=== PATIENT | female | born 1945 | race Caucasian/White ===

== ENCOUNTER → 2016-12-29 | Outpatient (CLI) | payer BC ==
[~2016-12-29] MED LIST: FRS/40 PO; INSDGI SQ; INSU100I SQ; LISI10TA PO; SIMV40TA2 PO
[2016-12-29 09:30] LABS: HEMATOCRIT 42.6 % (37-47); MEAN CELL VOLUME 89.1 fL (80-100); MEAN CORPUSCULAR HEMOGLOBIN 29.5 pg (25-34); MEAN CORPUSCULAR HGB CONC 33.1 g/dl (32-36); MEAN PLATELET VOLUME 10.6 fL (7.4-10.4); PLATELET COUNT 216 K/uL (130-400); RED BLOOD COUNT 4.78 M/uL (4.2-5.4)
[2016-12-29 10:43] LABS: BLOOD UREA NITROGEN 31 mg/dl (7-18); BUN/CREATININE RATIO 23.7 (10-20); CALCIUM 9.7 mg/dl (8.5-10.1); CARBON DIOXIDE 26 mmol/L (21-32); CHLORIDE 107 mmol/L (98-107); GLUCOSE 121 mg/dl (70-99); POTASSIUM 4.1 mmol/L (3.5-5.1); SODIUM 141 mmol/L (136-145)
[2016-12-29 10:44] LABS: PHOSPHORUS 2.7 mg/dl (2.5-4.9)
[2016-12-30 12:05] LABS: URINE APPEARANCE CLEAR (CLEAR); URINE BILIRUBIN NEG (NEG); URINE COLOR YELLOW; URINE NITRITE NEG (NEG); URINE SPECIFIC GRAVITY 1.018 (1.000-1.030); UROBILINOGEN NEG (NEG); ZZUR CULT IF INDIC CLEAN CATCH NO
[2016-12-30 12:08] LABS: MANUAL MICROSCOPIC REQUIRED? NO; REVIEW REQ? NO
== END | disposition home or self-care (01) ==
LOC: C.LAB 08:00
PROVIDERS: ATTEND Internal Medicine Nephrology
DX: I10 Essential (primary) hypertension (principal); N18.3 Chronic kidney disease, stage 3 (moderate); N25.81 Secondary hyperparathyroidism of renal origin; R80.9 Proteinuria, unspecified

== ENCOUNTER → 2017-03-17 | Outpatient (CLI) | payer BC ==
[2017-03-17 15:46] LABS: THYROID STIMULATING HORMONE 1.07 uIu/ml (0.300-4.500)
[2017-03-18 06:32] LABS: ESTIMATED AVERAGE GLUCOSE 146 mg/dl; HA1C FLAG Normal (Normal)
== END | disposition home or self-care (01) ==
LOC: C.LAB 13:05
PROVIDERS: ATTEND Internal Medicine
DX: E11.22 Type 2 diabetes mellitus with diabetic chronic kidney disease (principal); E78.00 Pure hypercholesterolemia, unspecified

== ENCOUNTER → 2017-11-25 | Outpatient (CLI) | payer BC ==
[2017-11-25 12:07] LABS: MEAN CELL VOLUME 88.1 fL (80-100); MEAN CORPUSCULAR HEMOGLOBIN 29.4 pg (25-34); MEAN CORPUSCULAR HGB CONC 33.3 g/dl (32-36); MEAN PLATELET VOLUME 10.3 fL (7.4-10.4); PLATELET COUNT 213 K/uL (130-400); RED CELL DISTRIBUTION WIDTH SD 45.4 fL (36.4-46.3)
[2017-11-25 12:42] LABS: ALBUMIN 3.5 gm/dl (3.4-5.0); ALT/SGPT 21 U/L (12-78); BLOOD UREA NITROGEN 34 mg/dl (7-18); CARBON DIOXIDE 25 mmol/L (21-32); CHOLESTEROL 110 mg/dl (0-200); GLUCOSE 122 mg/dl (70-99); POTASSIUM 4.1 mmol/L (3.5-5.1); SODIUM 139 mmol/L (136-145)
[2017-11-25 12:47] LABS: ALKALINE PHOSPHATASE 114 U/L (45-117); AST/SGOT 15 U/L (15-37); LDL CHOLESTEROL CALCULATED 28 mg/dl; TOTAL PROTEIN 7.3 gm/dl (6.4-8.2)
[2017-11-25 12:54] LABS: HEMOGLOBIN A1C 6.9 % (4.5-5.6)
== END | disposition home or self-care (01) ==
LOC: C.LAB 11:22
PROVIDERS: ATTEND Internal Medicine Nephrology
DX: E11.21 Type 2 diabetes mellitus with diabetic nephropathy (principal); I12.9 Hypertensive chronic kidney disease with stage 1 through stage 4 chronic kidney disease, or unspecified chronic kidney disease; N18.3 Chronic kidney disease, stage 3 (moderate); E55.9 Vitamin D deficiency, unspecified; N25.81 Secondary hyperparathyroidism of renal origin; R80.9 Proteinuria, unspecified

== ENCOUNTER → 2018-06-11 | Outpatient (CLI) | payer BC ==
[2018-06-11 12:34] LABS: ALT/SGPT 18 U/L (12-78); AST/SGOT 15 U/L (15-37); BLOOD UREA NITROGEN 38 mg/dl (7-18); CALCIUM 9.3 mg/dl (8.5-10.1); CARBON DIOXIDE 23 mmol/L (21-32); CHOLESTEROL 95 mg/dl (0-200); CREATININE 1.61 mg/dl (0.60-1.20); GLUCOSE 108 mg/dl (70-99); LDL CHOLESTEROL CALCULATED 19 mg/dl; POTASSIUM 4.4 mmol/L (3.5-5.1); SODIUM 136 mmol/L (136-145)
[2018-06-11 13:30] LABS: HEMOGLOBIN A1C 6.3 % (4.5-5.6)
== END | disposition home or self-care (01) ==
LOC: C.LAB 11:14
PROVIDERS: ATTEND Internal Medicine
DX: E78.00 Pure hypercholesterolemia, unspecified (principal); E11.9 Type 2 diabetes mellitus without complications

== ENCOUNTER 2024-10-10 18:28 | Observation (INO) ==
[2024-10-10] MEDS: ONDANSETRON INJ 2 MG/ML 2 ML VIAL IV STA ×2 (19:08→21:31)
[2024-10-10 19:14] LABS: Basophils # (auto) 0.08 K/uL (0.00-0.20); Basophils % (auto) 1.1 %; Eosinophils % (auto) 1.4 %; Hematocrit (blood only) 48.6 % (37.0-47.0); Hemoglobin 15.3 g/dl (12.0-16.0); Immature Granulocytes # (auto) 0.04 K/uL (0.01-0.20); Immature Granulocytes % (auto) 0.5 %; Lymphocytes # (auto) 1.42 K/uL (1.20-3.40); Lymphocytes % (auto) 19.2 %; Mean Corpuscular Hemoglobin 27.2 pg (25.0-34.0); Mean Corpuscular Hgb Conc 31.5 g/dL (32.0-36.0); Mean Corpuscular Volume 86.5 fL (80.0-100.0); Mean Platelet Volume 10.7 fL (9.4-12.4); Monocytes # (auto) 0.43 K/uL (0.11-0.59); Monocytes % (auto) 5.8 %; Neutrophils # (auto) 5.33 K/uL (1.40-6.50); Platelet Count 250 K/uL (130-400); RDW Coefficient of Variation 16.5 % (11.5-14.5); RDW Standard Deviation 51.6 fL (36.4-46.3); Red Blood Count 5.62 M/uL (4.20-5.40)
[2024-10-10] MEDS: ONDANSETRON INJ 2 MG/ML 2 ML VIAL ONE (19:15)
[2024-10-10 19:43] LABS: Albumin Globulin Ratio 1.3 (0.9-2); Albumin Level 3.7 gm/dl (3.4-5.0); BUN Creatinine Ratio 19.5 (10-20); Bilirubin,Total 0.9 mg/dl (0.2-1.0); Calcium 9.6 mg/dl (8.6-10.3); Creatinine Clr Calc Pharmacy 31.3 ml/min; Globulin 2.9 gm/dl (2.5-4.0); Total Protein 6.6 gm/dl (6.0-8.3)
[2024-10-10 19:58] LABS: Troponin I High Sensitivity 5.3 pg/ml (0-14)
--- NOTE | 2024-10-10 19:58 | Emergency Department Note ---
Impression & Plan Syncope, Atrial fibrillation ED Provider Note Diagnosis: Syncope, atrial fibrillation Disposition: Admission CHIEF COMPLAINT: Fall HPI: Patient 78-year-old female from nursing facility presenting after episodes of vomiting and fall. Patient believes she may have passed out during the episode. Patient denies any active chest pain or shortness of breath. Patient upon arrival was in A-fib with RVR which broke on its own by time I came to the room to evaluate the patient. Patient states she is having intermittent abdominal pain. Patient states she has chronic diarrhea without blood present in it. PAST MEDICAL HISTORY: See Below PAST SURGICAL HISTORY: See Below SOCIAL HISTORY: See Below HOME MEDICATIONS: See Below ALLERGIES: See Below VITALS: See Below PHYSICAL EXAMINATION: GENERAL: Well appearing, well nourished, NAD, non-toxic. EYE EXAM: Normal conjunctiva. OROPHARYNX: Moist mucus membranes. Grossly normal dentition. NECK: Supple, nontender LUNGS: Clear to auscultation. Normal chest wall mechanics. HEART: NSR ABDOMEN: Abdomen soft, mild tenderness BACK: No CVA TTP. SKIN: No rashes and no bruising. UPPER EXTREMITIES: Upper extremities are grossly normal LOWER EXTREMITIES: Grossly normal, no edema. NEURO EXAM: A&O x3,, normal speech, moves all 4 extremities PSYCH: Cooperative MEDICAL DECISION MAKING: Reviewed external documents: History obtained from: Patient ER Course: Patient 78-year-old female with history of cancer on hormonal treatment presenting after syncopal episode. Patient states she was at dinner tonight stood up to leave and passed out. Patient denies any chest pain or shortness of breath before the episode. Patient upon arrival in the emergency room found to be in A-fib with RVR. By time was able to get to the patient's room to evaluate her she had broke to a normal sinus rhythm. Upon review of patient's prior records she has no history of A-fib previously. Patient had CT scan of head performed which shows no intracranial hemorrhage. CT scan abdomen pelvis shows continued cancer present. Patient admitted to hospital service further treatment and evaluation. Labs (independently interpreted) are significant for: Troponin negative Imaging results (independently interpreted): Chest x-ray clear EKG interpretation (independently interpreted): First EKG atrial fibrillation with RVR no ST segment elevation or depression, second EKG normal sinus rhythm no ST segment elevation or depression Consultants: Hospitalist Chronic conditions affecting care: Uterine cancer Triage Nursing notes reviewed and agree them. 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) Hand numbness Lesion of thoracic vertebra Diarrhea Primary hyperparathyroidism Fracture of left distal radius (~12/31/23) Saw orthopedics on 12/31/23-fell while visiting [facility] Hand injury Wrist injury Current use of proton pump inhibitor Encounter to discuss test results Zenkers diverticulum Swallowing difficulty Skin lesion of right arm Proteinuria (Chronic) Chronic kidney disease, stage 3 (Chronic) Vitamin D deficiency (Chronic) Secondary hyperparathyroidism (Acute) Proliferative diabetic retinopathy (Acute) Osteoporosis (Acute) Lumbago (Acute) Hypertension (Chronic) Hypercholesterolemia (Acute) Diabetic nephropathy (Acute) Diabetes with neurologic complications (Acute) Medical History History of stroke Acid reflux Hypercalcemia Glaucoma Ruptured intervertebral disc Surgical History S/P tonsillectomy S/P lumbar laminectomy S/P cholecystectomy S/P cataract surgery Status post appendectomy Family History Brother Carcinoma of retina Type 2 diabetes mellitus Gastric cancer Dialysis patient Mother Macular degeneration Stroke Congestive heart failure Sister Bladder cancer Father No problems noted. Sister Thyroid cancer Son No problems noted. Daughter No problems noted. 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: No Beliefs That Will Affect Care: None marital status: / Current Living Situation: Alone Current Living Situation Comment: Resides in personal care at [facility] current occupational status: retired How many Children do You have: 2 How many Children do You have Comment: 1 boy 1 girl Feels Safe at Home: Yes Childhood Exposure to Second-Hand Smoke: No Diet: regular caffeine: Yes (1 cup/day) during the past year weight has: remained stable Dental Care, Regularly: Yes Physical Activity Frequency: Does not Exercise Seatbelt Use: always Assistive Devices: Walker Allergies Allergies Allergy/AdvReac Type Severity Reaction Status Date / Time codeine AdvReac Mild NAUSEA Verified 08/03/24 10:36 Home Meds Home Medications Medication Instructions Recorded Confirmed aspirin 325 mg tablet 325 mg PO DAILY 05/17/19 09/14/24 netarsudil 0.02 % eye drops 1 drp OPR HS 02/29/24 09/14/24 (Rhopressa) acetaminophen 500 mg tablet 500 mg PO Q6H PRN Pain 05/29/24 09/14/24 cholecalciferol (vitamin D3) 50 50 mcg PO DAILY 05/29/24 09/14/24 mcg (2,000 unit) tablet (Vitamin D3) dextrose 40 % oral gel (Glucose 1 ea PO UD PRN Hypoglycemia 05/29/24 09/14/24 Gel) dorzolamide 22.3 mg-timolol 6.8 1 drp OPB BID 05/29/24 09/14/24 mg/mL eye drops ferrous sulfate 325 mg (65 mg 325 mg PO DAILY 08/03/24 09/14/24 iron) tablet omeprazole 20 mg capsule,delayed 20 mg PO DAILY 08/03/24 09/14/24 release insulin aspart U-100 100 unit/mL 1 - 5 unit subcut TID 08/11/24 09/14/24 subcutaneous cartridge (Novolog PenFill U-100 Insulin aspart) insulin glargine 100 unit/mL 8 unit subcut QPM 08/11/24 09/14/24 subcutaneous solution (Lantus U-100 Insulin) Previous Rx's Medication Instructions Recorded blood sugar diagnostic (OneTouch #100 ea 05/18/23 Verio test strips) blood-glucose meter,continuous #1 ea 01/22/24 (FreeStyle Rhonda 3 [place]) loperamide 2 mg capsule 2 mg PO Q6H PRN Loose Stool #30 07/12/24 caps blood-glucose sensor (FreeStyle #1 ea 08/26/24 Rhonda 3 Plus Sensor device) lisinopril 20 mg tablet 20 mg PO DAILY #30 tabs 09/12/24 pen needle, diabetic 32 gauge x #100 ea 09/16/24 1/4" (BD Ultra-Fine Micro Pen Needle) finerenone 10 mg tablet 10 mg PO DAILY #30 tabs 09/28/24 Results & Data (ED) Vital Signs Vital Signs - 24 hr 10/10/24 18:40 10/10/24 18:48 10/10/24 18:55 Temperature 36.8 C Temperature Source Oral Pulse Rate 73 68 71 Pulse Rate [Apical] Pulse Rate from SpO2 Sensor 67 Pulse Rhythm Regular Pulse Rhythm [Apical] Pulse Strength Normal Pulse Strength [Apical] Respiratory Rate 25 H 18 Respiratory Effort / Characteristics Non-Labored Spontaneous Respiratory Depth Normal Respiratory Pattern Regular Blood Pressure 178/106 H Blood Pressure [Right Arm] Blood Pressure Mean 130 Blood Pressure Mean [Right Arm] Pulse Oximetry 89 L 99 Oxygen Delivery Method Room Air Oxygen Flow Rate Sepsis Recent Fever Within 48 Hours No Sepsis New/Unexplained Change in Mental Status No Sepsis Action Taken by Nursing No Action Required 10/10/24 19:00 10/10/24 19:08 10/10/24 19:10 Temperature Temperature Source Pulse Rate 160 H Pulse Rate [Apical] Pulse Rate from SpO2 Sensor Pulse Rhythm Pulse Rhythm [Apical] Pulse Strength Pulse Strength [Apical] Respiratory Rate Respiratory Effort / Characteristics Respiratory Depth Respiratory Pattern Blood Pressure Blood Pressure [Right Arm] Blood Pressure Mean Blood Pressure Mean [Right Arm] Pulse Oximetry 88 L 94 Oxygen Delivery Method Room Air Nasal Cannula Oxygen Flow Rate 2 Sepsis Recent Fever Within 48 Hours Sepsis New/Unexplained Change in Mental Status Sepsis Action Taken by Nursing 10/10/24 19:11 10/10/24 19:42 10/10/24 19:43 Temperature Temperature Source Pulse Rate 65 73 Pulse Rate [Apical] 72 Pulse Rate from SpO2 Sensor 72 Pulse Rhythm Pulse Rhythm [Apical] Regular Pulse Strength Pulse Strength [Apical] Normal Respiratory Rate 21 20 Respiratory Effort / Characteristics Non-Labored Spontaneous Respiratory Depth Normal Respiratory Pattern Regular Blood Pressure Blood Pressure [Right Arm] 118/79 Blood Pressure Mean Blood Pressure Mean [Right Arm] 92 Pulse Oximetry 98 94 Oxygen Delivery Method Nasal Cannula Oxygen Flow Rate 2 Sepsis Recent Fever Within 48 Hours Sepsis New/Unexplained Change in Mental Status Sepsis Action Taken by Nursing 10/10/24 19:43 10/10/24 19:46 10/10/24 20:00 Temperature Temperature Source Pulse Rate 72 Pulse Rate [Apical] Pulse Rate from SpO2 Sensor Pulse Rhythm Regular Pulse Rhythm [Apical] Pulse Strength Pulse Strength [Apical] Respiratory Rate Respiratory Effort / Characteristics Respiratory Depth Respiratory Pattern Blood Pressure 118/79 156/88 H Blood Pressure [Right Arm] Blood Pressure Mean 99 136 Blood Pressure Mean [Right Arm] Pulse Oximetry 94 Oxygen Delivery Method Oxygen Flow Rate Sepsis Recent Fever Within 48 Hours Sepsis New/Unexplained Change in Mental Status Sepsis Action Taken by Nursing 10/10/24 20:00 10/10/24 20:00 10/10/24 20:27 Temperature Temperature Source Pulse Rate 71 71 Pulse Rate [Apical] Pulse Rate from SpO2 Sensor 71 71 Pulse Rhythm Pulse Rhythm [Apical] Pulse Strength Pulse Strength [Apical] Respiratory Rate 20 16 Respiratory Effort / Characteristics Respiratory Depth Respiratory Pattern Blood Pressure 156/88 H Blood Pressure [Right Arm] Blood Pressure Mean 136 Blood Pressure Mean [Right Arm] Pulse Oximetry 99 95 Oxygen Delivery Method Oxygen Flow Rate Sepsis Recent Fever Within 48 Hours Sepsis New/Unexplained Change in Mental Status Sepsis Action Taken by Nursing 10/10/24 20:30 10/10/24 21:00 10/10/24 22:00 Temperature Temperature Source Pulse Rate 76 Pulse Rate [Apical] Pulse Rate from SpO2 Sensor 76 Pulse Rhythm Pulse Rhythm [Apical] Pulse Strength Pulse Strength [Apical] Respiratory Rate 22 Respiratory Effort / Characteristics Respiratory Depth Respiratory Pattern Blood Pressure 120/72 118/72 122/69 Blood Pressure [Right Arm] Blood Pressure Mean 88 87 104 Blood Pressure Mean [Right Arm] Pulse Oximetry 97 Oxygen Delivery Method Oxygen Flow Rate Sepsis Recent Fever Within 48 Hours Sepsis New/Unexplained Change in Mental Status Sepsis Action Taken by Nursing 10/10/24 22:06 10/10/24 23:05 Temperature Temperature Source Pulse Rate 68 68 Pulse Rate [Apical] Pulse Rate from SpO2 Sensor 66 Pulse Rhythm Pulse Rhythm [Apical] Pulse Strength Pulse Strength [Apical] Respiratory Rate 18 Respiratory Effort / Characteristics Respiratory Depth Respiratory Pattern Blood Pressure Blood Pressure [Right Arm] Blood Pressure Mean Blood Pressure Mean [Right Arm] Pulse Oximetry 93 Oxygen Delivery Method Oxygen Flow Rate Sepsis Recent Fever Within 48 Hours Sepsis New/Unexplained Change in Mental Status Sepsis Action Taken by Nursing Laboratory Data 10/10/24 18:45 10/10/24 18:45 Lab Results 10/10/24 Range/Units 18:45 WBC 7.40 (4.8-10.8) K/ul RBC 5.62 H (4.20-5.40) M/uL Hgb 15.3 (12.0-16.0) g/dl Hct 48.6 H (37.0-47.0) % MCV 86.5 (80.0-100.0) fL MCH 27.2 (25.0-34.0) pg MCHC 31.5 L (32.0-36.0) g/dL RDW Std Deviation 51.6 H (36.4-46.3) fL RDW Coeff of Makenna 16.5 H (11.5-14.5) % Plt Count 250 (130-400) K/uL MPV 10.7 (9.4-12.4) fL Immature Gran % (Auto) 0.5 % Neut % (Auto) 72.0 % Lymph % (Auto) 19.2 % [place] % (Auto) 5.8 % Eos % (Auto) 1.4 % Baso % (Auto) 1.1 % Neut # (Auto) 5.33 (1.40-6.50) K/uL Lymph # (Auto) 1.42 (1.20-3.40) K/uL [place] # (Auto) 0.43 (0.11-0.59) K/uL Eos # (Auto) 0.10 (0.00-0.50) K/uL Baso # (Auto) 0.08 (0.00-0.20) K/uL Immature Gran # (Auto) 0.04 (0.01-0.20) K/uL Sodium 136 (136-145) mmol/L Potassium 4.0 (3.5-5.1) mmol/L Chloride 107 (98-107) mmol/L Carbon Dioxide 22 (21-32) mmol/L Anion Gap 7 (3-11) BUN 30 H (6-23) mg/dl Creatinine 1.54 H (0.6-1.2) mg/dl Est Cr Clr Drug Dosing 31.3 ml/min eGFR 34.56 BUN/Creatinine Ratio 19.5 (10-20) Glucose 181 H (70-99(Fasting)) mg/dl Calcium 9.6 (8.6-10.3) mg/dl Magnesium 2.3 (1.7-2.4) mg/dl Total Bilirubin 0.9 (0.2-1.0) mg/dl AST 18 (13-39) U/L ALT 12 (7-52) U/L Alkaline Phosphatase 143 H (34-104) U/L Troponin I High Sens 5.3 (0-14) pg/ml Total Protein 6.6 (6.0-8.3) gm/dl Albumin 3.7 (3.4-5.0) gm/dl Globulin 2.9 (2.5-4.0) gm/dl Albumin/Globulin Ratio 1.3 (0.9-2) Lipase 9 L (11-82) U/L Administered Medications Discontinued Medications Ioversol (Optiray 320 100ml) 94 ml IV ONCE ONE Stop: 10/10/24 21:41 Last Admin: 10/10/24 21:41 Dose: 94 ml Documented By: DALILA Ondansetron HCl (Ondansetron Inj 2 Mg/Ml 2 Ml Vial) 4 mg IV NOW STA Stop: 10/10/24 19:01 Last Admin: 10/10/24 19:08 Dose: 4 mg Documented By: EDI Ondansetron HCl (Ondansetron Inj 2 Mg/Ml 2 Ml Vial) Confirm Administered Dose 4 mg .ROUTE .STK-MED ONE Stop: 10/10/24 19:02 Last Admin: 10/10/24 19:15 Dose: Not Given Documented By: EDI Ondansetron HCl (Ondansetron Inj 2 Mg/Ml 2 Ml Vial) 4 mg IV NOW STA Stop: 10/10/24 19:31 Last Admin: 10/10/24 21:31 Dose: Not Given Documented By: EDI Imaging Data Radiologist's Impression: Abdomen/Pelvis CT 10/10/24 19:30 Exam(s): CT ABDOMEN + PELVIS With Contrast IV Amt: 94 ml opti 320 EXAM: CT Abdomen and Pelvis With Intravenous Contrast CLINICAL HISTORY: Reason for exam: +n/v/d abd pain. TECHNIQUE: Axial computed tomography images of the abdomen and pelvis with intravenous contrast. CTDI is 23.34 mGy and DLP is 1197.31 mGy-cm. Automated exposure control was utilized for the study. A dose lowering technique was utilized adhering to the principles of ALARA. CONTRAST: Patient received 94 ml opti 320 of IV contrast COMPARISON: No relevant prior studies available. FINDINGS: ABDOMEN: Liver: Multiple metastatic lesions in the liver. Largest lesion in the liver left hepatic lobe measuring 2.8 x 2.5 cm, unchanged. Gallbladder and bile ducts: Cholecystectomy. Biliary dilatation has progressed from the prior. Pancreas: Unremarkable. Spleen: Unremarkable. Adrenals: Unremarkable. Kidneys and ureters: Unremarkable. No obstructing stones. No hydronephrosis. Stomach and bowel: Colonic diverticulosis. PELVIS: Appendix: No findings to suggest acute appendicitis. Bladder: Unremarkable. Reproductive: Unremarkable as visualized. ABDOMEN and PELVIS: Intraperitoneal space: Unremarkable. No free air. No significant fluid collection. Bones/joints: No acute fracture. Soft tissues: Unremarkable. Vasculature: Stenotic/occluded SMV with developing mesenteric varices. Lymph nodes: Numerous metastatic implants within the mesentery and retroperitoneal adenopathy. Largest metastatic implant measures 4.3 x 4. 4 cm at the level of the right renal vein unchanged. Other findings: Partially calcified mesenteric mass measuring 4.8 x 2. 8 cm is unchanged. IMPRESSION: 1. Multiple metastatic lesions in the liver. 2. Partially calcified mesenteric mass measuring 4.8 x 2.8 cm is unchanged. 3. Numerous metastatic implants within the mesentery and retroperitoneal adenopathy. Largest metastatic implant measures 4.3 x 4.4 cm at the level of the right renal vein unchanged. 4. Cholecystectomy. Biliary dilatation has progressed from the prior. 5. Stenotic/occluded SMV with developing mesenteric varices. Electronically signed by: Ze Oneill MD 10/10/24 22:54 PM Chest X-Ray 10/10/24 19:30 Exam(s): XR CXR 1 VIEW EXAM: XR Chest, 1 View CLINICAL HISTORY: Reason for exam: Chest pain, nonspecific. TECHNIQUE: Frontal view of the chest. COMPARISON: 05/29/2024 FINDINGS: Lungs: No consolidation. No overt edema. Pleural space: No pleural effusion. No pneumothorax. Heart: Unremarkable. No cardiomegaly. IMPRESSION: No acute cardiopulmonary abnormality. Electronically signed by: Ze Oneill MD 10/10/24 21:[address] 10/10/24 19:30 Exam(s): CT HEAD Without Contrast EXAM: CT Head Without Intravenous Contrast CLINICAL HISTORY: Reason for exam: fall. TECHNIQUE: Axial computed tomography images of the head/brain without intravenous contrast. CTDI is 35.65 mGy and DLP is 624.41 mGy-cm. Automated exposure control was utilized for the study. A dose lowering technique was utilized adhering to the principles of ALARA. COMPARISON: MRI 07/28/2024. FINDINGS: Brain: No intracranial hemorrhage, mass-effect, or cerebral edema. Global parenchymal atrophy. Periventricular and subcortical low attenuation which is nonspecific but favored to represent chronic microvascular ischemic changes. Ventricles: Unremarkable. Bones/joints: Unremarkable. No fracture. Soft tissues: Unremarkable. Sinuses: No acute sinusitis. Mastoid air cells: Unremarkable as visualized. IMPRESSION: 1. No acute intracranial abnormality. Electronically signed by: Ze Oneill MD 10/10/24 22:45 PM Discharge Plan Visit Data Chief Complaint: Vomiting ED Provider: Kamari Vargas Discharge Problem: Syncope, Atrial fibrillation Forms Stand Alone Forms: [employer] Prescriptions Prescriptions: No Action insulin glargine [Lantus U-100 Insulin] 100 unit/mL solution 8 unit subcut QPM (DME) OneTouch Verio test strips Strip See Rx Instructions .Route Qty: 100 6RF Rx Instructions: use to test sugar TID DX:E11.49 loperamide 2 mg capsule 2 mg PO Q6H MDD 16mg/24hr PRN (Reason: Loose Stool) Qty: 30 4RF (DME) FreeStyle Rhonda 3 Plus Sensor Device See Rx Instructions .Route Qty: 1 11RF Rx Instructions: change Q15D lisinopril 20 mg tablet 20 mg PO DAILY Qty: 30 4RF (DME) pen needle, diabetic [BD Ultra-Fine Micro Pen Needle] 32 gauge x 1/4" needle See Rx Instructions .Route Qty: 100 3RF Rx Instructions: use with novalog and lantus E11.9 finerenone 10 mg tablet 10 mg PO DAILY Qty: 30 1RF aspirin 325 mg tablet 325 mg PO DAILY (DME) FreeStyle Rhonda 3 [place] Misc See Rx Instructions .Route Qty: 1 0RF Rx Instructions: for use with rhonda 3 sensor insulin aspart U-100 [Novolog PenFill U-100 Insulin] 100 unit/mL cartridge 1 - 5 unit subcut TID Rhopressa 0.02 % drops 1 drp OPR HS Rx Instructions: 1 drop in right eye at bedtime ferrous sulfate 325 mg (65 mg iron) tablet 325 mg PO DAILY omeprazole 20 mg capsule,delayed release(DR/EC) 20 mg PO DAILY dextrose [Glucose Gel] 40 % Gel 1 ea PO UD PRN (Reason: Hypoglycemia) Rx Instructions: If BG is <50 give 1 tube and retest in 15 mins. Repeat if BG is <80. If pt is unable to take orally, administer 1mg of glucagon subcutaneously acetaminophen [Tylenol Ex Str Rapid Release] 500 mg Tablet 500 mg PO Q6H PRN (Reason: Pain) dorzolamide-timolol 22.3-6.8 mg/mL drops 1 drp OPB BID cholecalciferol (vitamin D3) [Vitamin D3] 50 mcg (2,000 unit) Tablet 50 mcg PO DAILY Referrals Referrals: Pro,Jermaine Roberts MD [Primary Care Provider] -
--- NOTE | 2024-10-10 21:26 | XRay Report ---
Exam(s): XR CXR 1 VIEW EXAM: XR Chest, 1 View CLINICAL HISTORY: Reason for exam: Chest pain, nonspecific. TECHNIQUE: Frontal view of the chest. COMPARISON: 05/29/2024 FINDINGS: Lungs: No consolidation. No overt edema. Pleural space: No pleural effusion. No pneumothorax. Heart: Unremarkable. No cardiomegaly. IMPRESSION: No acute cardiopulmonary abnormality. Electronically signed by: Ze Oneill MD 10/10/24 21:25 PM
[2024-10-10] MEDS: OPTIRAY 320 100ml IV ONE (21:41)
--- NOTE | 2024-10-10 22:46 | CT Scan Report ---
Exam(s): CT HEAD Without Contrast EXAM: CT Head Without Intravenous Contrast CLINICAL HISTORY: Reason for exam: fall. TECHNIQUE: Axial computed tomography images of the head/brain without intravenous contrast. CTDI is 35.65 mGy and DLP is 624.41 mGy-cm. Automated exposure control was utilized for the study. A dose lowering technique was utilized adhering to the principles of ALARA. COMPARISON: MRI 07/28/2024. FINDINGS: Brain: No intracranial hemorrhage, mass-effect, or cerebral edema. Global parenchymal atrophy. Periventricular and subcortical low attenuation which is nonspecific but favored to represent chronic microvascular ischemic changes. Ventricles: Unremarkable. Bones/joints: Unremarkable. No fracture. Soft tissues: Unremarkable. Sinuses: No acute sinusitis. Mastoid air cells: Unremarkable as visualized. IMPRESSION: 1. No acute intracranial abnormality. Electronically signed by: Ze Oneill MD 10/10/24 22:45 PM
--- NOTE | 2024-10-10 22:55 | CT Scan Report ---
Exam(s): CT ABDOMEN + PELVIS With Contrast IV Amt: 94 ml opti 320 EXAM: CT Abdomen and Pelvis With Intravenous Contrast CLINICAL HISTORY: Reason for exam: +n/v/d abd pain. TECHNIQUE: Axial computed tomography images of the abdomen and pelvis with intravenous contrast. CTDI is 23.34 mGy and DLP is 1197.31 mGy-cm. Automated exposure control was utilized for the study. A dose lowering technique was utilized adhering to the principles of ALARA. CONTRAST: Patient received 94 ml opti 320 of IV contrast COMPARISON: No relevant prior studies available. FINDINGS: ABDOMEN: Liver: Multiple metastatic lesions in the liver. Largest lesion in the liver left hepatic lobe measuring 2.8 x 2.5 cm, unchanged. Gallbladder and bile ducts: Cholecystectomy. Biliary dilatation has progressed from the prior. Pancreas: Unremarkable. Spleen: Unremarkable. Adrenals: Unremarkable. Kidneys and ureters: Unremarkable. No obstructing stones. No hydronephrosis. Stomach and bowel: Colonic diverticulosis. PELVIS: Appendix: No findings to suggest acute appendicitis. Bladder: Unremarkable. Reproductive: Unremarkable as visualized. ABDOMEN and PELVIS: Intraperitoneal space: Unremarkable. No free air. No significant fluid collection. Bones/joints: No acute fracture. Soft tissues: Unremarkable. Vasculature: Stenotic/occluded SMV with developing mesenteric varices. Lymph nodes: Numerous metastatic implants within the mesentery and retroperitoneal adenopathy. Largest metastatic implant measures 4.3 x 4. 4 cm at the level of the right renal vein unchanged. Other findings: Partially calcified mesenteric mass measuring 4.8 x 2. 8 cm is unchanged. IMPRESSION: 1. Multiple metastatic lesions in the liver. 2. Partially calcified mesenteric mass measuring 4.8 x 2.8 cm is unchanged. 3. Numerous metastatic implants within the mesentery and retroperitoneal adenopathy. Largest metastatic implant measures 4.3 x 4.4 cm at the level of the right renal vein unchanged. 4. Cholecystectomy. Biliary dilatation has progressed from the prior. 5. Stenotic/occluded SMV with developing mesenteric varices. Electronically signed by: Ze Oneill MD 10/10/24 22:54 PM
--- NOTE | 2024-10-11 01:20 | History & Physical Report ---
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 Differential including but not limited to: A-fib with RVR, dehydration, NSTEMI, sepsis due to UTI Sepsis due to UTI- Hold all antihypertensives Follow urine culture and sensitivity Did receive a dose of vancomycin IV with further dosing held Daptomycin IV and Zosyn IV Schuler catheter Consult urology Atrial fibrillation with RVR- Patient was in A-fib with RVR upon arrival, but was self-limited, and resolved spontaneously. Potassium 4.3, magnesium 2.3 Patient is somewhat dehydrated, which may be contributory Telemetry admission as noted above Acute kidney injury superimposed on CKD- Creatinine 3.30, with base 1.50 Status post 2 L normal saline bolus in the ED Placed on NSS at 150 mill per hour x 2 additional liters Recheck laboratories in the a.m. Stage IV uterine cancer- Known metastases to bone CT scan of abdomen pelvis notes multiple metastatic lesions to liver, with notations of CT abdomen/pelvis on 07/22/2024 with numerous metastases to hepatic, pulmonary and osseous metastatic disease Metastatic implants within the mesentery and retroperitoneal adenopathy with the largest being unchanged Stenotic/occluded SMV with developing mesenteric varices. No notation of SMA stenosis Stress dosing hydrocortisone 100 mg IV now, and 3 times daily History of Present Illness Chief Complaint: The patient is brought to the emergency department via ambulance from the nursing facility, due to episodes of vomiting and falling, with likely syncope during the episode. Primary Care Provider: Jermaine Duran MD The patient is a 78-year-old female with a past medical history including neuroendocrine carcinoma metastatic to bone, primary hyperparathyroidism, GERD, Zenker's diverticulum, CKD stage III, hypertension, hypercholesterolemia, diabetes, and diabetic nephropathy. The patient is referred to the emergency department from nursing facility, due to episodes of vomiting and falling with likely syncope earlier in the day today. The patient reports that upon awakening this morning she felt fine, she went to a low level activity program, was not feeling quite so well, and thought she would eat toast a cheese sandwich which usually helps her stomach out, and some kelime pie. Shortly after that she felt nauseous, with intermittent epigastric pain. She does have chronic diarrhea, he did not notice any change including no blood in stool. Upon arrival to the emergency department, the patient was in atrial fibrillation with RVR, which was self-limited and quickly resolved on its own. The patient denies any history of atrial fibrillation, and reports that every so often she notices palpitations, but has never had any issues with passing out. At this time she feels generally weak, without focal weakness of arms or legs. Allergies Allergy/AdvReac Type Severity Reaction Status Date / Time codeine AdvReac Mild NAUSEA Verified 08/03/24 10:36 Home Medications Medication Instructions Recorded Confirmed Type aspirin 325 mg tablet 325 mg PO DAILY 05/17/19 09/14/24 History blood sugar diagnostic (OneTouch #100 ea 05/18/23 09/14/24 Rx Verio test strips) blood-glucose meter,continuous #1 ea 01/22/24 09/14/24 Rx (FreeStyle Rhonda 3 [place]) netarsudil 0.02 % eye drops 1 drp OPR HS 02/29/24 09/14/24 History ([place]a) acetaminophen 500 mg tablet 500 mg PO Q6H PRN Pain 05/29/24 09/14/24 History cholecalciferol (vitamin D3) 50 50 mcg PO DAILY 05/29/24 09/14/24 History mcg (2,000 unit) tablet (Vitamin D3) dextrose 40 % oral gel (Glucose 1 ea PO UD PRN Hypoglycemia 05/29/24 09/14/24 History Gel) dorzolamide 22.3 mg-timolol 6.8 1 drp OPB BID 05/29/24 09/14/24 History mg/mL eye drops loperamide 2 mg capsule 2 mg PO Q6H PRN Loose Stool #30 07/12/24 09/14/24 Rx caps ferrous sulfate 325 mg (65 mg 325 mg PO DAILY 08/03/24 09/14/24 History iron) tablet omeprazole 20 mg capsule,delayed 20 mg PO DAILY 08/03/24 09/14/24 History release insulin aspart U-100 100 unit/mL 1 - 5 unit subcut TID 08/11/24 09/14/24 History subcutaneous cartridge (Novolog PenFill U-100 Insulin aspart) insulin glargine 100 unit/mL 8 unit subcut QPM 08/11/24 09/14/24 History subcutaneous solution (Lantus U-100 Insulin) blood-glucose sensor (FreeStyle #1 ea 08/26/24 09/14/24 Rx Rhonda 3 Plus Sensor device) lisinopril 20 mg tablet 20 mg PO DAILY #30 tabs 09/12/24 09/14/24 Rx pen needle, diabetic 32 gauge x #100 ea 09/16/24 Rx 1/4" (BD Ultra-Fine Micro Pen Needle) finerenone 10 mg tablet 10 mg PO DAILY #30 tabs 09/28/24 Rx Past Med/Surg History Problem List (Updated 10/11/24 @ 02:47 by Kenrick Garcia MD) Acute kidney injury superimposed on CKD Chronic diarrhea Metastases to the liver Atrial fibrillation with RVR Atrial fibrillation (Acute) Syncope (Acute) 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 (Chronic 08/01/24) Hand numbness Lesion of thoracic vertebra Diarrhea Primary hyperparathyroidism Fracture of left distal radius (~12/31/23) Saw orthopedics on 12/31/23-fell while visiting [facility] Hand injury Wrist injury Current use of proton pump inhibitor Encounter to discuss test results Zenkers diverticulum Swallowing difficulty Skin lesion of right arm Proteinuria (Chronic) Chronic kidney disease, stage 3 (Chronic) Vitamin D deficiency (Chronic) Secondary hyperparathyroidism (Acute) Proliferative diabetic retinopathy (Acute) Osteoporosis (Acute) Lumbago (Acute) Hypertension (Chronic) Hypercholesterolemia (Acute) Diabetic nephropathy (Acute) Diabetes with neurologic complications (Acute) Medical History History of stroke Acid reflux Hypercalcemia Glaucoma Ruptured intervertebral disc Surgical History S/P tonsillectomy S/P lumbar laminectomy S/P cholecystectomy S/P cataract surgery Status post appendectomy Family History Brother Carcinoma of retina Type 2 diabetes mellitus Gastric cancer Dialysis patient Mother Macular degeneration Stroke Congestive heart failure Sister Bladder cancer Father No problems noted. Sister Thyroid cancer Son No problems noted. Daughter No problems noted. Denies family history of Prostate cancer Clotting disorder Crohn's disease Myocardial infarction Breast cancer Colorectal cancer Ulcerative colitis Social History Smoking Status: Never smoker Second Hand Exposure: No; Do You Dip or Chew Tobacco: No; Hx Alcohol Use: No Hx Substance Use: No Preferred Language: Mexican Communication Ability: Effective Visual Impairment: Severely Limited Hearing Ability: Normal [place] Required: No Beliefs That Will Affect Care: None marital status: / Current Living Situation: Alone Current Living Situation Comment: Resides in personal care at [facility] current occupational status: retired How many Children do You have: 2 How many Children do You have Comment: 1 boy 1 girl Feels Safe at Home: Yes Childhood Exposure to Second-Hand Smoke: No Diet: regular caffeine: Yes (1 cup/day) during the past year weight has: remained stable Dental Care, Regularly: Yes Physical Activity Frequency: Does not Exercise Seatbelt Use: always Assistive Devices: Walker Review of Systems Review of Systems: The patient denies chest pain, palpitations, shortness of breath, dyspnea on exertion, cough, lower extremity swelling, sore throat, fevers, chills, sweats, blood in urine or stool, dysuria, urinary frequency or urgency, rash, abnormal bruising or bleeding, focal weakness, numbness or tingling in arms or legs, generalized arthralgias or myalgias, back or neck pain, or night sweats. The review of systems is otherwise negative other than for that already noted above, and at least 10 systems have been reviewed. Physical Exam Physical Exam: The patient is awake, alert and oriented 3, well developed and well nourished, normocephalic and atraumatic, lying in bed and in no acute distress. HEENT--PERRL, EOMI, mucous membranes and oropharynx mildly dry. Neck--supple. No JVD. No bruits. Thyroid normal, trachea midline, no adenopathy. Heart--normal S1 and S2. No murmurs, rubs or gallops. Lungs--clear bilaterally, no respiratory distress, no accessory muscle use. Abdomen--normal bowel sounds and soft. Nontender. Nondistended Extremities--No edema. Dermatologic--normal skin turgor, normal color, no abnormal lymph nodes, no rash. Neurologic--cranial nerves II through XII grossly intact. Rheumatologic--normal range of motion. Psychiatric--normal affect. Results & Data Results & Data Vital Signs (Past 12 Hours) Vital Signs Temp Pulse Pulse Resp BP BP Pulse Ox 10/10/24 23:05 68 10/10/24 22:06 68 18 93 10/10/24 22:00 122/69 10/10/24 21:00 76 22 118/72 97 10/10/24 20:30 120/72 10/10/24 20:27 71 16 95 10/10/24 20:00 71 20 99 10/10/24 20:00 156/88 H 10/10/24 20:00 156/88 H 10/10/24 19:46 118/79 10/10/24 19:43 72 94 10/10/24 19:43 72 20 118/79 94 10/10/24 19:42 73 21 98 10/10/24 19:11 65 10/10/24 19:10 94 10/10/24 19:08 88 L 10/10/24 19:00 160 H 10/10/24 18:55 36.8 C 71 18 178/106 H 99 10/10/24 18:48 68 25 H 89 L 10/10/24 18:40 73 O2 Del Method O2 Flow Rate 10/10/24 23:05 10/10/24 22:06 10/10/24 22:00 10/10/24 21:00 10/10/24 20:30 10/10/24 20:27 10/10/24 20:00 10/10/24 20:00 10/10/24 20:00 10/10/24 19:46 10/10/24 19:43 10/10/24 19:43 Nasal Cannula 2 10/10/24 19:42 10/10/24 19:11 10/10/24 19:10 Nasal Cannula 2 10/10/24 19:08 Room Air 10/10/24 19:00 10/10/24 18:55 Room Air 10/10/24 18:48 10/10/24 18:40 Laboratory Results Laboratory Results WBC 7.40 K/ul (4.8-10.8) 10/10/24 18:45 RBC 5.62 M/uL (4.20-5.40) H 10/10/24 18:45 Hgb 15.3 g/dl (12.0-16.0) 10/10/24 18:45 Hct 48.6 % (37.0-47.0) H 10/10/24 18:45 MCV 86.5 fL (80.0-100.0) 10/10/24 18:45 MCH 27.2 pg (25.0-34.0) 10/10/24 18:45 MCHC 31.5 g/dL (32.0-36.0) L 10/10/24 18:45 RDW Std Deviation 51.6 fL (36.4-46.3) H 10/10/24 18:45 RDW Coeff of Makenna 16.5 % (11.5-14.5) H 10/10/24 18:45 Plt Count 250 K/uL (130-400) 10/10/24 18:45 MPV 10.7 fL (9.4-12.4) 10/10/24 18:45 Immature Gran % (Auto) 0.5 % 10/10/24 18:45 Neut % (Auto) 72.0 % 10/10/24 18:45 Lymph % (Auto) 19.2 % 10/10/24 18:45 [place] % (Auto) 5.8 % 10/10/24 18:45 Eos % (Auto) 1.4 % 10/10/24 18:45 Baso % (Auto) 1.1 % 10/10/24 18:45 Neut # (Auto) 5.33 K/uL (1.40-6.50) 10/10/24 18:45 Lymph # (Auto) 1.42 K/uL (1.20-3.40) 10/10/24 18:45 [place] # (Auto) 0.43 K/uL (0.11-0.59) 10/10/24 18:45 Eos # (Auto) 0.10 K/uL (0.00-0.50) 10/10/24 18:45 Baso # (Auto) 0.08 K/uL (0.00-0.20) 10/10/24 18:45 Immature Gran # (Auto) 0.04 K/uL (0.01-0.20) 10/10/24 18:45 Sodium 136 mmol/L (136-145) 10/10/24 18:45 Potassium 4.0 mmol/L (3.5-5.1) 10/10/24 18:45 Chloride 107 mmol/L (98-107) 10/10/24 18:45 Carbon Dioxide 22 mmol/L (21-32) 10/10/24 18:45 Anion Gap 7 (3-11) 10/10/24 18:45 BUN 30 mg/dl (6-23) H 10/10/24 18:45 Creatinine 1.54 mg/dl (0.6-1.2) H 10/10/24 18:45 Est Cr Clr Drug Dosing 31.3 ml/min 10/10/24 18:45 eGFR 34.56 10/10/24 18:45 BUN/Creatinine Ratio 19.5 (10-20) 10/10/24 18:45 Glucose 181 mg/dl (70-99(Fasting)) H 10/10/24 18:45 Calcium 9.6 mg/dl (8.6-10.3) 10/10/24 18:45 Magnesium 2.3 mg/dl (1.7-2.4) 10/10/24 18:45 Total Bilirubin 0.9 mg/dl (0.2-1.0) 10/10/24 18:45 AST 18 U/L (13-39) 10/10/24 18:45 ALT 12 U/L (7-52) 10/10/24 18:45 Alkaline Phosphatase 143 U/L (34-104) H 10/10/24 18:45 Troponin I High Sens 5.3 pg/ml (0-14) 10/10/24 18:45 Total Protein 6.6 gm/dl (6.0-8.3) 10/10/24 18:45 Albumin 3.7 gm/dl (3.4-5.0) 10/10/24 18:45 Globulin 2.9 gm/dl (2.5-4.0) 10/10/24 18:45 Albumin/Globulin Ratio 1.3 (0.9-2) 10/10/24 18:45 Lipase 9 U/L (11-82) L 10/10/24 18:45 Impressions Abdomen/Pelvis CT 10/10/24 19:30 Exam(s): CT ABDOMEN + PELVIS With Contrast IV Amt: 94 ml opti 320 EXAM: CT Abdomen and Pelvis With Intravenous Contrast CLINICAL HISTORY: Reason for exam: +n/v/d abd pain. TECHNIQUE: Axial computed tomography images of the abdomen and pelvis with intravenous contrast. CTDI is 23.34 mGy and DLP is 1197.31 mGy-cm. Automated exposure control was utilized for the study. A dose lowering technique was utilized adhering to the principles of ALARA. CONTRAST: Patient received 94 ml opti 320 of IV contrast COMPARISON: No relevant prior studies available. FINDINGS: ABDOMEN: Liver: Multiple metastatic lesions in the liver. Largest lesion in the liver left hepatic lobe measuring 2.8 x 2.5 cm, unchanged. Gallbladder and bile ducts: Cholecystectomy. Biliary dilatation has progressed from the prior. Pancreas: Unremarkable. Spleen: Unremarkable. Adrenals: Unremarkable. Kidneys and ureters: Unremarkable. No obstructing stones. No hydronephrosis. Stomach and bowel: Colonic diverticulosis. PELVIS: Appendix: No findings to suggest acute appendicitis. Bladder: Unremarkable. Reproductive: Unremarkable as visualized. ABDOMEN and PELVIS: Intraperitoneal space: Unremarkable. No free air. No significant fluid collection. Bones/joints: No acute fracture. Soft tissues: Unremarkable. Vasculature: Stenotic/occluded SMV with developing mesenteric varices. Lymph nodes: Numerous metastatic implants within the mesentery and retroperitoneal adenopathy. Largest metastatic implant measures 4.3 x 4. 4 cm at the level of the right renal vein unchanged. Other findings: Partially calcified mesenteric mass measuring 4.8 x 2. 8 cm is unchanged. IMPRESSION: 1. Multiple metastatic lesions in the liver. 2. Partially calcified mesenteric mass measuring 4.8 x 2.8 cm is unchanged. 3. Numerous metastatic implants within the mesentery and retroperitoneal adenopathy. Largest metastatic implant measures 4.3 x 4.4 cm at the level of the right renal vein unchanged. 4. Cholecystectomy. Biliary dilatation has progressed from the prior. 5. Stenotic/occluded SMV with developing mesenteric varices. Electronically signed by: Ze Oneill MD 10/10/24 22:54 PM Chest X-Ray 10/10/24 19:30 Exam(s): XR CXR 1 VIEW EXAM: XR Chest, 1 View CLINICAL HISTORY: Reason for exam: Chest pain, nonspecific. TECHNIQUE: Frontal view of the chest. COMPARISON: 05/29/2024 FINDINGS: Lungs: No consolidation. No overt edema. Pleural space: No pleural effusion. No pneumothorax. Heart: Unremarkable. No cardiomegaly. IMPRESSION: No acute cardiopulmonary abnormality. Electronically signed by: Ze Oneill MD 10/10/24 21:[address] 10/10/24 19:30 Exam(s): CT HEAD Without Contrast EXAM: CT Head Without Intravenous Contrast CLINICAL HISTORY: Reason for exam: fall. TECHNIQUE: Axial computed tomography images of the head/brain without intravenous contrast. CTDI is 35.65 mGy and DLP is 624.41 mGy-cm. Automated exposure control was utilized for the study. A dose lowering technique was utilized adhering to the principles of ALARA. COMPARISON: MRI 07/28/2024. FINDINGS: Brain: No intracranial hemorrhage, mass-effect, or cerebral edema. Global parenchymal atrophy. Periventricular and subcortical low attenuation which is nonspecific but favored to represent chronic microvascular ischemic changes. Ventricles: Unremarkable. Bones/joints: Unremarkable. No fracture. Soft tissues: Unremarkable. Sinuses: No acute sinusitis. Mastoid air cells: Unremarkable as visualized. IMPRESSION: 1. No acute intracranial abnormality. 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
[2024-10-11 01:21] LABS: Magnesium 2.3 mg/dl (1.7-2.4)
--- NOTE | 2024-10-11 03:17 | History & Physical Report ---
Date of Service October 11, 2024 History of Present Illness Primary Care Provider: Jermaine Duran MD Allergies Allergy/AdvReac Type Severity Reaction Status Date / Time codeine AdvReac Mild NAUSEA Verified 08/03/24 10:36 Home Medications Medication Instructions Recorded Confirmed Type aspirin 325 mg tablet 325 mg PO DAILY 05/17/19 09/14/24 History blood sugar diagnostic (OneTouch #100 ea 05/18/23 09/14/24 Rx Verio test strips) blood-glucose meter,continuous #1 ea 01/22/24 09/14/24 Rx (FreeStyle Rhonda 3 [place]) netarsudil 0.02 % eye drops 1 drp OPR HS 02/29/24 09/14/24 History ([place]) acetaminophen 500 mg tablet 500 mg PO Q6H PRN Pain 05/29/24 09/14/24 History cholecalciferol (vitamin D3) 50 50 mcg PO DAILY 05/29/24 09/14/24 History mcg (2,000 unit) tablet (Vitamin D3) dextrose 40 % oral gel (Glucose 1 ea PO UD PRN Hypoglycemia 05/29/24 09/14/24 History Gel) dorzolamide 22.3 mg-timolol 6.8 1 drp OPB BID 05/29/24 09/14/24 History mg/mL eye drops loperamide 2 mg capsule 2 mg PO Q6H PRN Loose Stool #30 07/12/24 09/14/24 Rx caps ferrous sulfate 325 mg (65 mg 325 mg PO DAILY 08/03/24 09/14/24 History iron) tablet omeprazole 20 mg capsule,delayed 20 mg PO DAILY 08/03/24 09/14/24 History release insulin aspart U-100 100 unit/mL 1 - 5 unit subcut TID 08/11/24 09/14/24 History subcutaneous cartridge (Novolog PenFill U-100 Insulin aspart) insulin glargine 100 unit/mL 8 unit subcut QPM 08/11/24 09/14/24 History subcutaneous solution (Lantus U-100 Insulin) blood-glucose sensor (FreeStyle #1 ea 08/26/24 09/14/24 Rx Rhonda 3 Plus Sensor device) lisinopril 20 mg tablet 20 mg PO DAILY #30 tabs 09/12/24 09/14/24 Rx pen needle, diabetic 32 gauge x #100 ea 09/16/24 Rx 1/4" (BD Ultra-Fine Micro Pen Needle) finerenone 10 mg tablet 10 mg PO DAILY #30 tabs 09/28/24 Rx Past Med/Surg History Problem List (Updated 10/11/24 @ 02:47 by Kenrick Garcia MD) Acute kidney injury superimposed on CKD Chronic diarrhea Metastases to the liver Atrial fibrillation with RVR Atrial fibrillation (Acute) Syncope (Acute) 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 (Chronic 08/01/24) Hand numbness Lesion of thoracic vertebra Diarrhea Primary hyperparathyroidism Fracture of left distal radius (~12/31/23) Saw orthopedics on 12/31/23-fell while visiting [facility] Hand injury Wrist injury Current use of proton pump inhibitor Encounter to discuss test results Zenkers diverticulum Swallowing difficulty Skin lesion of right arm Proteinuria (Chronic) Chronic kidney disease, stage 3 (Chronic) Vitamin D deficiency (Chronic) Secondary hyperparathyroidism (Acute) Proliferative diabetic retinopathy (Acute) Osteoporosis (Acute) Lumbago (Acute) Hypertension (Chronic) Hypercholesterolemia (Acute) Diabetic nephropathy (Acute) Diabetes with neurologic complications (Acute) Medical History History of stroke Acid reflux Hypercalcemia Glaucoma Ruptured intervertebral disc Surgical History S/P tonsillectomy S/P lumbar laminectomy S/P cholecystectomy S/P cataract surgery Status post appendectomy Family History Brother Carcinoma of retina Type 2 diabetes mellitus Gastric cancer Dialysis patient Mother Macular degeneration Stroke Congestive heart failure Sister Bladder cancer Father No problems noted. Sister Thyroid cancer Son No problems noted. Daughter No problems noted. Denies family history of Prostate cancer Clotting disorder Crohn's disease Myocardial infarction Breast cancer Colorectal cancer Ulcerative colitis Social History Smoking Status: Never smoker Second Hand Exposure: No; Do You Dip or Chew Tobacco: No; Hx Alcohol Use: No Hx Substance Use: No Preferred Language: Tunisian Communication Ability: Effective Visual Impairment: Severely Limited Hearing Ability: Normal [place] Required: No Beliefs That Will Affect Care: None marital status: / Current Living Situation: Alone Current Living Situation Comment: Resides in personal care at [facility] current occupational status: retired How many Children do You have: 2 How many Children do You have Comment: 1 boy 1 girl Feels Safe at Home: Yes Childhood Exposure to Second-Hand Smoke: No Diet: regular caffeine: Yes (1 cup/day) during the past year weight has: remained stable Dental Care, Regularly: Yes Physical Activity Frequency: Does not Exercise Seatbelt Use: always Assistive Devices: Walker Results & Data Results & Data Vital Signs (Past 12 Hours) Vital Signs Temp Pulse Pulse Resp BP BP Pulse Ox 10/11/24 02:30 96/53 L 10/11/24 02:00 138/72 10/11/24 02:00 138/72 10/11/24 01:57 70 11 L 10/11/24 01:30 117/60 10/11/24 01:30 117/60 10/11/24 01:09 77 15 10/11/24 01:00 128/83 10/11/24 01:00 128/83 10/11/24 00:51 74 16 97 10/11/24 00:30 125/72 10/11/24 00:27 75 18 99 10/11/24 00:00 98/65 L 10/11/24 00:00 80 19 98/65 L 98 10/10/24 23:30 65 15 114/60 94 10/10/24 23:05 68 10/10/24 22:06 68 18 93 10/10/24 22:00 122/69 10/10/24 21:00 76 22 118/72 97 10/10/24 20:30 120/72 10/10/24 20:27 71 16 95 10/10/24 20:00 71 20 99 10/10/24 20:00 156/88 H 10/10/24 20:00 156/88 H 10/10/24 19:46 118/79 10/10/24 19:43 72 94 10/10/24 19:43 72 20 118/79 94 10/10/24 19:42 73 21 98 10/10/24 19:11 65 10/10/24 19:10 94 10/10/24 19:08 88 L 10/10/24 19:00 160 H 10/10/24 18:55 36.8 C 71 18 178/106 H 99 10/10/24 18:48 68 25 H 89 L 10/10/24 18:40 73 O2 Del Method O2 Flow Rate 10/11/24 02:30 10/11/24 02:00 10/11/24 02:00 10/11/24 01:57 10/11/24 01:30 10/11/24 01:30 10/11/24 01:09 10/11/24 01:00 10/11/24 01:00 10/11/24 00:51 10/11/24 00:30 10/11/24 00:27 10/11/24 00:00 10/11/24 00:00 10/10/24 23:30 10/10/24 23:05 10/10/24 22:06 10/10/24 22:00 10/10/24 21:00 10/10/24 20:30 10/10/24 20:27 10/10/24 20:00 10/10/24 20:00 10/10/24 20:00 10/10/24 19:46 10/10/24 19:43 10/10/24 19:43 Nasal Cannula 2 10/10/24 19:42 10/10/24 19:11 10/10/24 19:10 Nasal Cannula 2 10/10/24 19:08 Room Air 10/10/24 19:00 10/10/24 18:55 Room Air 10/10/24 18:48 10/10/24 18:40 Code Status & VTE Plan VTE Prophylaxis Plan VTE Prophylaxis will be ordered: Yes PG Care Time/CCT Total # of Minutes Spent Total Time Spent with Patient: Total time spent is greater than 50% in coordination of care (as documented) at patient's floor/unit and/or counseling patient: Coding
[2024-10-11] MEDS: SODIUM CHLORIDE 0.9% 1,000 ML IV STA (03:25)
--- NOTE | 2024-10-11 03:54 | History & Physical Report ---
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 Consult oncology, as patient notes that her third hormonal treatment is due this 10/13 Acute kidney injury superimposed on CKD- Creatinine 1.54, with base 1.30 and top range 1.75 IV fluids as noted above, recheck laboratories in the a.m. Hold lisinopril, and finerenone Repeat laboratories in the a.m. History of Present Illness Chief Complaint: The patient presents to the emergency department after being referred from nursing facility due to episodes of vomiting and a fall, which likely was syncopal, early this afternoon. Upon arrival to the emergency department, the patient was found to be in atrial fibrillation with RVR, which broke spontaneously prior to intervention by emergency department Primary Care Provider: Jermaine Duran MD The patient is a 78-year-old female with a past medical history including neuroendocrine carcinoma metastatic to bone, primary hyperparathyroidism, GERD, Zenker's diverticulum, CKD stage III, hypercholesterolemia, hypertension, diabetes mellitus and diabetic nephropathy. She presents to the emergency department after an episode of vomiting with a fall, possibly syncopal. Upon arrival to the emergency department, patient has no further symptoms. She notes that she does have chronic diarrhea secondary to her neuroendocrine tumor, that is unchanged Allergies Allergy/AdvReac Type Severity Reaction Status Date / Time codeine AdvReac Mild NAUSEA Verified 08/03/24 10:36 Home Medications Medication Instructions Recorded Confirmed Type aspirin 325 mg tablet 325 mg PO DAILY 05/17/19 09/14/24 History blood sugar diagnostic (OneTouch #100 ea 05/18/23 09/14/24 Rx Verio test strips) blood-glucose meter,continuous #1 ea 01/22/24 09/14/24 Rx (FreeStyle Rhonda 3 Swain) netarsudil 0.02 % eye drops 1 drp OPR HS 02/29/24 09/14/24 History ([place]a) acetaminophen 500 mg tablet 500 mg PO Q6H PRN Pain 05/29/24 09/14/24 History cholecalciferol (vitamin D3) 50 50 mcg PO DAILY 05/29/24 09/14/24 History mcg (2,000 unit) tablet (Vitamin D3) dextrose 40 % oral gel (Glucose 1 ea PO UD PRN Hypoglycemia 05/29/24 09/14/24 History Gel) dorzolamide 22.3 mg-timolol 6.8 1 drp OPB BID 05/29/24 09/14/24 History mg/mL eye drops loperamide 2 mg capsule 2 mg PO Q6H PRN Loose Stool #30 07/12/24 09/14/24 Rx caps ferrous sulfate 325 mg (65 mg 325 mg PO DAILY 08/03/24 09/14/24 History iron) tablet omeprazole 20 mg capsule,delayed 20 mg PO DAILY 08/03/24 09/14/24 History release insulin aspart U-100 100 unit/mL 1 - 5 unit subcut TID 08/11/24 09/14/24 History subcutaneous cartridge (Novolog PenFill U-100 Insulin aspart) insulin glargine 100 unit/mL 8 unit subcut QPM 08/11/24 09/14/24 History subcutaneous solution (Lantus U-100 Insulin) blood-glucose sensor (FreeStyle #1 ea 08/26/24 09/14/24 Rx Rhonda 3 Plus Sensor device) lisinopril 20 mg tablet 20 mg PO DAILY #30 tabs 09/12/24 09/14/24 Rx pen needle, diabetic 32 gauge x #100 ea 09/16/24 Rx 1/4" (BD Ultra-Fine Micro Pen Needle) finerenone 10 mg tablet 10 mg PO DAILY #30 tabs 09/28/24 Rx Past Med/Surg History Problem List (Updated 10/11/24 @ 04:01 by Kenrick Garcia MD) Nausea and vomiting Acute kidney injury superimposed on CKD Chronic diarrhea Metastases to the liver Atrial fibrillation with RVR Atrial fibrillation (Acute) Syncope (Acute) 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 (Chronic 08/01/24) Hand numbness Lesion of thoracic vertebra Diarrhea Primary hyperparathyroidism Fracture of left distal radius (~12/31/23) Saw orthopedics on 12/31/23-fell while visiting [facility] Hand injury Wrist injury Current use of proton pump inhibitor Encounter to discuss test results Zenkers diverticulum Swallowing difficulty Skin lesion of right arm Proteinuria (Chronic) Chronic kidney disease, stage 3 (Chronic) Vitamin D deficiency (Chronic) Secondary hyperparathyroidism (Acute) Proliferative diabetic retinopathy (Acute) Osteoporosis (Acute) Lumbago (Acute) Hypertension (Chronic) Hypercholesterolemia (Acute) Diabetic nephropathy (Acute) Diabetes with neurologic complications (Acute) Medical History History of stroke Acid reflux Hypercalcemia Glaucoma Ruptured intervertebral disc Surgical History S/P tonsillectomy S/P lumbar laminectomy S/P cholecystectomy S/P cataract surgery Status post appendectomy Family History Brother Carcinoma of retina Type 2 diabetes mellitus Gastric cancer Dialysis patient Mother Macular degeneration Stroke Congestive heart failure Sister Bladder cancer Father No problems noted. Sister Thyroid cancer Son No problems noted. Daughter No problems noted. 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 Beliefs That Will Affect Care: None marital status: / Current Living Situation: Alone Current Living Situation Comment: Resides in personal care at [facility] current occupational status: retired How many Children do You have: 2 How many Children do You have Comment: 1 boy 1 girl Feels Safe at Home: Yes Childhood Exposure to Second-Hand Smoke: No Diet: regular caffeine: Yes (1 cup/day) during the past year weight has: remained stable Dental Care, Regularly: Yes Physical Activity Frequency: Does not Exercise Seatbelt Use: always Assistive Devices: Walker Review of Systems Review of Systems: The patient denies chest pain, palpitations, shortness of breath, dyspnea on exertion, cough, lower extremity swelling, sore throat, fevers, chills, sweats, blood in urine or stool, dysuria, urinary frequency or urgency, rash, abnormal bruising or bleeding, focal weakness, numbness or tingling in arms or legs, generalized arthralgias or myalgias, back or neck pain, or night sweats. The review of systems is otherwise negative other than for that already noted above, and at least 10 systems have been reviewed. Physical Exam Physical Exam: The patient is awake, alert and oriented 3, well developed and well nourished, normocephalic and atraumatic, lying in bed and in no acute distress. HEENT--PERRL, EOMI, mucous membranes and oropharynx dry. Neck--supple. No JVD. No bruits. Thyroid normal, trachea midline, no adenopathy. Heart--normal S1 and S2. No murmurs, rubs or gallops. Lungs--clear bilaterally, no respiratory distress, no accessory muscle use. Abdomen--normal bowel sounds and soft. Nontender. Nondistended Extremities--No edema. Dermatologic--normal skin turgor, normal color, no abnormal lymph nodes, no rash. Neurologic--cranial nerves II through XII grossly intact. Rheumatologic--normal range of motion. Psychiatric--normal affect. Results & Data Results & Data Vital Signs (Past 12 Hours) Vital Signs Temp Pulse Pulse Resp BP BP Pulse Ox 10/11/24 02:58 68 10/11/24 02:30 96/53 L 10/11/24 02:00 138/72 10/11/24 02:00 138/72 10/11/24 01:57 70 11 L 10/11/24 01:30 117/60 10/11/24 01:30 117/60 10/11/24 01:09 77 15 10/11/24 01:00 128/83 10/11/24 01:00 128/83 10/11/24 00:51 74 16 97 10/11/24 00:30 125/72 10/11/24 00:27 75 18 99 10/11/24 00:00 98/65 L 10/11/24 00:00 80 19 98/65 L 98 10/10/24 23:30 65 15 114/60 94 10/10/24 23:05 68 10/10/24 22:06 68 18 93 10/10/24 22:00 122/69 10/10/24 21:00 76 22 118/72 97 10/10/24 20:30 120/72 10/10/24 20:27 71 16 95 10/10/24 20:00 71 20 99 10/10/24 20:00 156/88 H 10/10/24 20:00 156/88 H 10/10/24 19:46 118/79 10/10/24 19:43 72 94 10/10/24 19:43 72 20 118/79 94 10/10/24 19:42 73 21 98 10/10/24 19:11 65 10/10/24 19:10 94 10/10/24 19:08 88 L 10/10/24 19:00 160 H 10/10/24 18:55 36.8 C 71 18 178/106 H 99 10/10/24 18:48 68 25 H 89 L 10/10/24 18:40 73 O2 Del Method O2 Flow Rate 10/11/24 02:58 10/11/24 02:30 10/11/24 02:00 10/11/24 02:00 10/11/24 01:57 10/11/24 01:30 10/11/24 01:30 10/11/24 01:09 10/11/24 01:00 10/11/24 01:00 10/11/24 00:51 10/11/24 00:30 10/11/24 00:27 10/11/24 00:00 10/11/24 00:00 10/10/24 23:30 10/10/24 23:05 10/10/24 22:06 10/10/24 22:00 10/10/24 21:00 10/10/24 20:30 10/10/24 20:27 10/10/24 20:00 10/10/24 20:00 10/10/24 20:00 10/10/24 19:46 10/10/24 19:43 10/10/24 19:43 Nasal Cannula 2 10/10/24 19:42 10/10/24 19:11 10/10/24 19:10 Nasal Cannula 2 10/10/24 19:08 Room Air 10/10/24 19:00 10/10/24 18:55 Room Air 10/10/24 18:48 10/10/24 18:40 Laboratory Results Laboratory Results WBC 7.40 K/ul (4.8-10.8) 10/10/24 18:45 RBC 5.62 M/uL (4.20-5.40) H 10/10/24 18:45 Hgb 15.3 g/dl (12.0-16.0) 10/10/24 18:45 Hct 48.6 % (37.0-47.0) H 10/10/24 18:45 MCV 86.5 fL (80.0-100.0) 10/10/24 18:45 MCH 27.2 pg (25.0-34.0) 10/10/24 18:45 MCHC 31.5 g/dL (32.0-36.0) L 10/10/24 18:45 RDW Std Deviation 51.6 fL (36.4-46.3) H 10/10/24 18:45 RDW Coeff of Makenna 16.5 % (11.5-14.5) H 10/10/24 18:45 Plt Count 250 K/uL (130-400) 10/10/24 18:45 MPV 10.7 fL (9.4-12.4) 10/10/24 18:45 Immature Gran % (Auto) 0.5 % 10/10/24 18:45 Neut % (Auto) 72.0 % 10/10/24 18:45 Lymph % (Auto) 19.2 % 10/10/24 18:45 [place] % (Auto) 5.8 % 10/10/24 18:45 Eos % (Auto) 1.4 % 10/10/24 18:45 Baso % (Auto) 1.1 % 10/10/24 18:45 Neut # (Auto) 5.33 K/uL (1.40-6.50) 10/10/24 18:45 Lymph # (Auto) 1.42 K/uL (1.20-3.40) 10/10/24 18:45 [place] # (Auto) 0.43 K/uL (0.11-0.59) 10/10/24 18:45 Eos # (Auto) 0.10 K/uL (0.00-0.50) 10/10/24 18:45 Baso # (Auto) 0.08 K/uL (0.00-0.20) 10/10/24 18:45 Immature Gran # (Auto) 0.04 K/uL (0.01-0.20) 10/10/24 18:45 Sodium 136 mmol/L (136-145) 10/10/24 18:45 Potassium 4.0 mmol/L (3.5-5.1) 10/10/24 18:45 Chloride 107 mmol/L (98-107) 10/10/24 18:45 Carbon Dioxide 22 mmol/L (21-32) 10/10/24 18:45 Anion Gap 7 (3-11) 10/10/24 18:45 BUN 30 mg/dl (6-23) H 10/10/24 18:45 Creatinine 1.54 mg/dl (0.6-1.2) H 10/10/24 18:45 Est Cr Clr Drug Dosing 31.3 ml/min 10/10/24 18:45 eGFR 34.56 10/10/24 18:45 BUN/Creatinine Ratio 19.5 (10-20) 10/10/24 18:45 Glucose 181 mg/dl (70-99(Fasting)) H 10/10/24 18:45 Calcium 9.6 mg/dl (8.6-10.3) 10/10/24 18:45 Magnesium 2.3 mg/dl (1.7-2.4) 10/10/24 18:45 Total Bilirubin 0.9 mg/dl (0.2-1.0) 10/10/24 18:45 AST 18 U/L (13-39) 10/10/24 18:45 ALT 12 U/L (7-52) 12/09/24 18:45 Alkaline Phosphatase 143 U/L (34-104) H 10/10/24 18:45 Troponin I High Sens 5.3 pg/ml (0-14) 10/10/24 18:45 Total Protein 6.6 gm/dl (6.0-8.3) 10/10/24 18:45 Albumin 3.7 gm/dl (3.4-5.0) 10/10/24 18:45 Globulin 2.9 gm/dl (2.5-4.0) 10/10/24 18:45 Albumin/Globulin Ratio 1.3 (0.9-2) 10/10/24 18:45 Lipase 9 U/L (11-82) L 10/10/24 18:45 Impressions Abdomen/Pelvis CT 10/10/24 19:30 Exam(s): CT ABDOMEN + PELVIS With Contrast IV Amt: 94 ml opti 320 EXAM: CT Abdomen and Pelvis With Intravenous Contrast CLINICAL HISTORY: Reason for exam: +n/v/d abd pain. TECHNIQUE: Axial computed tomography images of the abdomen and pelvis with intravenous contrast. CTDI is 23.34 mGy and DLP is 1197.31 mGy-cm. Automated exposure control was utilized for the study. A dose lowering technique was utilized adhering to the principles of ALARA. CONTRAST: Patient received 94 ml opti 320 of IV contrast COMPARISON: No relevant prior studies available. FINDINGS: ABDOMEN: Liver: Multiple metastatic lesions in the liver. Largest lesion in the liver left hepatic lobe measuring 2.8 x 2.5 cm, unchanged. Gallbladder and bile ducts: Cholecystectomy. Biliary dilatation has progressed from the prior. Pancreas: Unremarkable. Spleen: Unremarkable. Adrenals: Unremarkable. Kidneys and ureters: Unremarkable. No obstructing stones. No hydronephrosis. Stomach and bowel: Colonic diverticulosis. PELVIS: Appendix: No findings to suggest acute appendicitis. Bladder: Unremarkable. Reproductive: Unremarkable as visualized. ABDOMEN and PELVIS: Intraperitoneal space: Unremarkable. No free air. No significant fluid collection. Bones/joints: No acute fracture. Soft tissues: Unremarkable. Vasculature: Stenotic/occluded SMV with developing mesenteric varices. Lymph nodes: Numerous metastatic implants within the mesentery and retroperitoneal adenopathy. Largest metastatic implant measures 4.3 x 4. 4 cm at the level of the right renal vein unchanged. Other findings: Partially calcified mesenteric mass measuring 4.8 x 2. 8 cm is unchanged. IMPRESSION: 1. Multiple metastatic lesions in the liver. 2. Partially calcified mesenteric mass measuring 4.8 x 2.8 cm is unchanged. 3. Numerous metastatic implants within the mesentery and retroperitoneal adenopathy. Largest metastatic implant measures 4.3 x 4.4 cm at the level of the right renal vein unchanged. 4. Cholecystectomy. Biliary dilatation has progressed from the prior. 5. Stenotic/occluded SMV with developing mesenteric varices. Electronically signed by: Ze Oneill MD 10/10/24 22:54 PM Chest X-Ray 10/10/24 19:30 Exam(s): XR CXR 1 VIEW EXAM: XR Chest, 1 View CLINICAL HISTORY: Reason for exam: Chest pain, nonspecific. TECHNIQUE: Frontal view of the chest. COMPARISON: 05/29/2024 FINDINGS: Lungs: No consolidation. No overt edema. Pleural space: No pleural effusion. No pneumothorax. Heart: Unremarkable. No cardiomegaly. IMPRESSION: No acute cardiopulmonary abnormality. Electronically signed by: Ze Oneill MD 10/10/24 21:[address] 10/10/24 19:30 Exam(s): CT HEAD Without Contrast EXAM: CT Head Without Intravenous Contrast CLINICAL HISTORY: Reason for exam: fall. TECHNIQUE: Axial computed tomography images of the head/brain without intravenous contrast. CTDI is 35.65 mGy and DLP is 624.41 mGy-cm. Automated exposure control was utilized for the study. A dose lowering technique was utilized adhering to the principles of ALARA. COMPARISON: MRI 07/28/2024. FINDINGS: Brain: No intracranial hemorrhage, mass-effect, or cerebral edema. Global parenchymal atrophy. Periventricular and subcortical low attenuation which is nonspecific but favored to represent chronic microvascular ischemic changes. Ventricles: Unremarkable. Bones/joints: Unremarkable. No fracture. Soft tissues: Unremarkable. Sinuses: No acute sinusitis. Mastoid air cells: Unremarkable as visualized. IMPRESSION: 1. No acute intracranial abnormality. 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
[2024-10-11] MEDS ORDERED: ACETAMINOPHEN 325 MG TAB PO PRN (04:43)
[2024-10-11] MEDS ORDERED: ONDANSETRON INJ 2 MG/ML 2 ML VIAL IV PRN (04:43)
[2024-10-11] MEDS ORDERED: LOPERAMIDE HCL 2 MG CAP PO PRN (04:43)
[2024-10-11 06:26] LABS: Albumin Level 3.2 gm/dl (3.4-5.0); Calcium 9.4 mg/dl (8.6-10.3); Potassium 4.6 mmol/L (3.5-5.1)
[2024-10-11 06:32] LABS: BUN Creatinine Ratio 22.5 (10-20); Creatinine Clr Calc Pharmacy 33.9 ml/min; Phosphorus 3.7 mg/dl (2.5-4.9)
--- NOTE | 2024-10-11 07:19 | Hospitalist Progress Note ---
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 Emesis/Syncope Chronic Diarrhea - Undifferentiated etiology Potential a/w spicy foods vs dehydration - CTAP negative - Labs remarkable for ANTONIO/hyponatremia - Echocardiogram completed, pending read - Hemodynamically stable on room air - Tylenol/Zofran PRN Chronic, Paroxismal, AFib RVR - Transient episode upon arrival, resolved w/o intervention - Potentially a/w dehydration as above - Could have contributed to syncope Echocardiogram pending Monitor on telemetry - K & Mg Stable - Remains in NSR --- Cardiology consultation pending Neuroendocrine Carcinoma w/ Mets (Liver/Lung/Bone) - Unchanged on admission imaging from 07/22/24 - Stenotic SMV w/ mesenteric varices noted - Currently NPO - Planned 3rd hormonal treatment due 10/13 --- Oncology consultation pending ANTONIO on CKD - Creatinine 1.54, with base 1.30 - Hold lisinopril, and finerenone - Improvement s/p 1L NSS but remains clinically dry Continue mIVF w/ NSS @ 115 Chronic Conditions: DM2: ACHS BSG w/ SSI Inpatient, home basal dosing ordered Code: DNR/DNI DVT: Heparin Diet: NPO Dispo: PCU/tele Admission and Anticipated Discharge Date Admission Date: October 11, 2024 Supervising Physician Co-Signing Physician Notes Attending Physician Supervision Note: I independently interviewed and examined the patient and verified the bullock history and physical, reviewed labs and image studies and agree with findings and care plan noted above. Syncope -in setting of chronic diarrhea and acute emesis. Also developed transient RVR. positive orthostatics recorded by nursing. Presentation likely from hypovolemia. -Continue IV hydration -Diet advanced. Chronic diarrhea -secondary to neuroendocrine tumor. -Continue loperamide -Due for hormonal treatment for the tumor in 2 days which helps with her symptoms A-fib RVR on presentation -history of PAF. RVR trigger hypovolemia. -Evaluated by cardiology. Continue rehydration -Add metoprolol 25 mg twice daily. -Not on anticoagulation -secondary to liver mets HTN -on lisinopril. Held on admission. -Cardiology agrees with continuing to hold to Allow permissive hypertension SCD Subjective Kezia was resting comfortably in bed upon arrival. No acute events since arrival to the floor. Patient notes that she has not had any emesis or syncope since arrival. She does endorse intermittent dizziness. She denies any new viral symptoms, changes in diet or medications, or increasing abdominal pain. She did not have any chest pain or dyspnea during her syncopal event. Patient expressed that she has struggled with chronic diarrhea with episodes to frequent to count, but over the last 24-48 hours she has also had emesis that was also to frequent to count. She denies blood in her emesis or stool and also notes that the frequency of her bowel movements decreases when she gets her hormone injections with Oncology. She lives at the [facility]. Physical Exam Physical Exam: Gen: No acute distress, pleasant HEENT: PERRL, EOMI, mucous membranes and oropharynx dry. Neck: Soft, no LAD or thyromegaly Heart: RRR, normal S1/S2 no MRG Lungs: non-labored, CTAB, no wheezing/rhonchi/rales Abdomen: Soft, non-distended, active bowel sounds, no TTP or mass Ext: distal pulses 2+, no LE edema Dermatologic: Visible skin intact w/o rashes or lesions Neurologic: AO x 3 Psych: Appropriate mood/affect Results & Data Results & Data Vital Signs (Past 12 Hours) Vital Signs Temp Pulse Pulse Resp BP BP Pulse Ox 10/11/24 07:00 37.0 C 73 16 157/83 H 95 10/11/24 05:30 70 10/11/24 05:00 67 10/11/24 04:43 37.2 C 67 15 134/87 94 10/11/24 04:41 67 10/11/24 04:30 37.2 C 77 16 134/87 94 10/11/24 04:20 10/11/24 02:58 68 10/11/24 02:30 96/53 L 10/11/24 02:00 138/72 10/11/24 02:00 138/72 10/11/24 01:57 70 11 L 10/11/24 01:30 117/60 10/11/24 01:30 117/60 10/11/24 01:09 77 15 10/11/24 01:00 128/83 10/11/24 01:00 128/83 10/11/24 00:51 74 16 97 10/11/24 00:30 125/72 10/11/24 00:27 75 18 99 10/11/24 00:00 98/65 L 10/11/24 00:00 80 19 98/65 L 98 10/10/24 23:30 65 15 114/60 94 10/10/24 23:05 68 10/10/24 22:06 68 18 93 10/10/24 22:00 122/69 10/10/24 21:00 76 22 118/72 97 10/10/24 20:30 120/72 10/10/24 20:27 71 16 95 10/10/24 20:00 71 20 99 10/10/24 20:00 156/88 H 10/10/24 20:00 156/88 H 10/10/24 19:46 118/79 10/10/24 19:43 72 94 10/10/24 19:43 72 20 118/79 94 10/10/24 19:42 73 21 98 O2 Del Method O2 Flow Rate 10/11/24 07:00 Room Air 10/11/24 05:30 10/11/24 05:00 10/11/24 04:43 Room Air 10/11/24 04:41 10/11/24 04:30 Room Air 10/11/24 04:20 Room Air 10/11/24 02:58 10/11/24 02:30 10/11/24 02:00 10/11/24 02:00 10/11/24 01:57 10/11/24 01:30 10/11/24 01:30 10/11/24 01:09 10/11/24 01:00 10/11/24 01:00 10/11/24 00:51 10/11/24 00:30 10/11/24 00:27 10/11/24 00:00 10/11/24 00:00 10/10/24 23:30 10/10/24 23:05 10/10/24 22:06 10/10/24 22:00 10/10/24 21:00 10/10/24 20:30 10/10/24 20:27 10/10/24 20:00 10/10/24 20:00 10/10/24 20:00 10/10/24 19:46 10/10/24 19:43 10/10/24 19:43 Nasal Cannula 2 10/10/24 19:42 Resident Activity Tracking Resident Involvement: Resident Care Provided Care Provided: Adult Hospital Medicine
[2024-10-11] MEDS ORDERED: GLUCOSE 10 TAB/TUBE PO PRN (08:13)
[2024-10-11] MEDS ORDERED: CARBOHYDRATES FOR HYPOGLYCEMIA PO PRN (08:13)
[2024-10-11] MEDS ORDERED: GLUCOSE 40% GEL 15 GM TUBE PO PRN (08:13)
[2024-10-11] MEDS ORDERED: GLUCAGON FOR INJ 1 MG VIAL SQ PRN (08:13)
[2024-10-11] MEDS ORDERED: DEXTROSE 50% 50 ML SYRINGE IV PRN (08:13)
--- NOTE | 2024-10-11 08:26 | Electrocardiogram Report ---
Test Reason : Blood Pressure : */* mmHG Vent. Rate : 162 BPM Atrial Rate : * BPM P-R Int : * ms QRS Dur : 90 ms QT Int : 274 ms P-R-T Axes : * -43 107 degrees QTcB Int : 449 ms Atrial fibrillation with rapid ventricular response with premature ventricular or aberrantly conducte d complexes Left anterior fascicular block Old Septal infarct Abnormal ECG When compared with ECG of 29-May-2024 10:17, Atrial fibrillation has replaced Sinus rhythm Vent. rate has increased by 83 bpm Criteria for Septal infarct is now Present Confirmed by Oscar Fletcher ([id number]) on 10/11/2024 8:26:54 AM Referred By: Jermaine Duran Confirmed By: Oscar Fletcher
[2024-10-11] MEDS: CHOLECALCIFEROL 25 MCG (1000 UNITS) TAB PO SCH (09:48)
[2024-10-11] MEDS: ASPIRIN 325 MG ECTAB PO SCH (09:48)
[2024-10-11] MEDS: DORZOLAMIDE/TIMOLOL 22.3/6.8MG/ML 10 ML BTL OPB SCH (09:49)
[2024-10-11] MEDS: PANTOprazole 40 MG TAB PO SCH (09:49)
[2024-10-11] MEDS: HEPARIN SOD 5,000 UNIT/0.5 ML VIAL SQ SCH (09:50)
--- NOTE | 2024-10-11 10:08 | Oncology Consultation ---
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 Suspect that diarrhea likely due to metastatic neuroendocrine carcinoma for which she is currently receiving octreotide and is scheduled for her third dose of treatment later this week. -Agree with current management. I will plan to see her in clinic next week Thursday to discuss potentially starting systemic chemotherapy since symptoms have persisted despite receiving 2 doses of octreotide.Will move octreotide injection to next week 10/17/2024 due to transportation issues. Patient agreed with above plan. Plan also discussed with her daughter over the phone. Thank you for this consult. Oncology will sign off and plan to see patient upon discharge. Please feel free to call if you have any questions History of Present Illness Reason for Consultation: Neuroendocrine CA mets to bone and liver Attending Physician: Hilda Swan MD History of Present Illness 78 year old female with metastatic neuroendocrine tumor for which she started monthly octreotide LAR depot injections on 08/18/2024. She presented to the ER at [facility] following presyncopal/syncopal episode with complaints of diarrhea and nausea. States that nausea has improved. Still having diarrhea.CT abdomen and pelvis obtained on 10/10/2024 showed multiple metastatic lesions in the liver, partially calcified mesenteric mass measuring 4.8 x 2.8 cm, numerous metastatic implants within mesentery and retroperitoneal adenopathy largest mesenteric implant measures 4.3 x 4.4 cm at the level of the right renal vein unchanged, stenotic/occluded SMV with developing mesenteric jennifer ices.. Allergies Allergy/AdvReac Type Severity Reaction Status Date / Time codeine AdvReac Mild NAUSEA Verified 08/03/24 10:36 Home Medications Medication Instructions Recorded Confirmed Type aspirin 325 mg tablet 325 mg PO DAILY 05/17/19 10/11/24 History blood sugar diagnostic (OneTouch #100 ea 05/18/23 10/11/24 Rx Verio test strips) blood-glucose meter,continuous #1 ea 01/22/24 10/11/24 Rx (FreeStyle Rhonda 3 [place]) netarsudil 0.02 % eye drops 1 drp OPR HS 02/29/24 10/11/24 History ([place]) acetaminophen 500 mg tablet 500 mg PO Q6H PRN Pain 05/29/24 10/11/24 History cholecalciferol (vitamin D3) 50 50 mcg PO DAILY 05/29/24 10/11/24 History mcg (2,000 unit) tablet (Vitamin D3) dextrose 40 % oral gel (Glucose 1 ea PO UD PRN Hypoglycemia 05/29/24 10/11/24 History Gel) dorzolamide 22.3 mg-timolol 6.8 1 drp OPB BID 05/29/24 10/11/24 History mg/mL eye drops loperamide 2 mg capsule 2 mg PO Q6H PRN Loose Stool #30 07/12/24 09/14/24 Rx caps ferrous sulfate 325 mg (65 mg 325 mg PO DAILY 08/03/24 10/11/24 History iron) tablet omeprazole 20 mg capsule,delayed 20 mg PO DAILY 08/03/24 09/14/24 History release insulin aspart U-100 100 unit/mL 1 - 5 unit subcut TIDWMEAL 08/11/24 10/11/24 History subcutaneous cartridge (Novolog PenFill U-100 Insulin aspart) insulin glargine 100 unit/mL 8 - 11 unit subcut QPM 08/11/24 10/11/24 History subcutaneous solution (Lantus U-100 Insulin) blood-glucose sensor (FreeStyle #1 ea 08/26/24 10/11/24 Rx Rhonda 3 Plus Sensor device) lisinopril 20 mg tablet 20 mg PO DAILY #30 tabs 09/12/24 10/11/24 Rx pen needle, diabetic 32 gauge x #100 ea 09/16/24 10/11/24 Rx 1/4" (BD Ultra-Fine Micro Pen Needle) finerenone 10 mg tablet 10 mg PO DAILY #30 tabs 09/28/24 10/11/24 Rx artificial tears solution eye drops 1 drp ophthalmic (eye) PRN Dry 10/11/24 History Eye(S) dextrose 40 % oral gel (Glutose-15) 1 ea PO PRN Hypoglycemia 10/11/24 History loperamide 2 mg capsule 2 mg PO Q2H PRN Diarrhea 10/11/24 10/11/24 History Patient History Medical History History of stroke Acid reflux Hypercalcemia Glaucoma Ruptured intervertebral disc Surgical History S/P tonsillectomy S/P lumbar laminectomy S/P cholecystectomy S/P cataract surgery Status post appendectomy Family History Brother Carcinoma of retina Type 2 diabetes mellitus Gastric cancer Dialysis patient Mother Macular degeneration Stroke Congestive heart failure Sister Bladder cancer Father No problems noted. Sister Thyroid cancer Son No problems noted. Daughter No problems noted. Denies family history of Prostate cancer Clotting disorder Crohn's disease Myocardial infarction Breast cancer Colorectal cancer Ulcerative colitis Social History Smoking Status: Unknown if ever smoked Second Hand Exposure: No; Do You Dip or Chew Tobacco: No; Hx Alcohol Use: No Hx Substance Use: No Preferred Language: Upper Sorbian Communication Ability: Effective Visual Impairment: Severely Limited Hearing Ability: Normal Guest Services Associate Required: No Beliefs That Will Affect Care: None marital status: / Current Living Situation: Personal Care Facility Current Living Situation Comment: [facility] current occupational status: retired How many Children do You have: 2 How many Children do You have Comment: 1 boy 1 girl Other Information That Helps Us Care for You: No Feels Safe at Home: Yes Safety Concerns: Feels Safe At This Time Childhood Exposure to Second-Hand Smoke: No Diet: regular caffeine: Yes (1 cup/day) during the past year weight has: remained stable Dental Care, Regularly: Yes Physical Activity Frequency: Does not Exercise Seatbelt Use: always Assistive Devices: Walker Results & Data Vital Signs (Past 12 Hours) Vital Signs Temp Pulse Pulse Resp BP BP Pulse Ox 10/11/24 09:00 73 16 120/64 90 10/11/24 08:03 78 21 93 10/11/24 08:01 125/59 L 10/11/24 08:01 125/59 L 10/11/24 08:01 125/59 L 10/11/24 08:01 82 18 125/59 L 95 10/11/24 07:45 94 H 22 73/39 L 98 10/11/24 07:44 96 H 21 80/33 L 97 10/11/24 07:00 37.0 C 73 16 157/83 H 95 10/11/24 05:30 70 10/11/24 05:00 67 10/11/24 04:43 37.2 C 67 15 134/87 94 10/11/24 04:41 67 10/11/24 04:30 37.2 C 77 16 134/87 94 10/11/24 04:20 10/11/24 02:58 68 10/11/24 02:30 96/53 L 10/11/24 02:00 138/72 10/11/24 02:00 138/72 10/11/24 01:57 70 11 L 10/11/24 01:30 117/60 10/11/24 01:30 117/60 10/11/24 01:09 77 15 10/11/24 01:00 128/83 10/11/24 01:00 128/83 10/11/24 00:51 74 16 97 10/11/24 00:30 125/72 10/11/24 00:27 75 18 99 10/11/24 00:00 98/65 L 10/11/24 00:00 80 19 98/65 L 98 10/10/24 23:30 65 15 114/60 94 10/10/24 23:05 68 O2 Del Method 10/11/24 09:00 Room Air 10/11/24 08:03 10/11/24 08:01 10/11/24 08:01 10/11/24 08:01 10/11/24 08:01 Room Air 10/11/24 07:45 Room Air 10/11/24 07:44 Room Air 10/11/24 07:00 Room Air 10/11/24 05:30 10/11/24 05:00 10/11/24 04:43 Room Air 10/11/24 04:41 10/11/24 04:30 Room Air 10/11/24 04:20 Room Air 10/11/24 02:58 10/11/24 02:30 10/11/24 02:00 10/11/24 02:00 10/11/24 01:57 10/11/24 01:30 10/11/24 01:30 10/11/24 01:09 10/11/24 01:00 10/11/24 01:00 10/11/24 00:51 10/11/24 00:30 10/11/24 00:27 10/11/24 00:00 10/11/24 00:00 10/10/24 23:30 10/10/24 23:05
[2024-10-11] MEDS: INSULIN ASPART PER UNIT CHARGE SC SCH (11:40)
[2024-10-11] MEDS ORDERED: ACETAMINOPHEN 500 MG TAB PO PRN (11:44)
[2024-10-11] MEDS ORDERED: ARTIFICIAL TEARS OP PRN (11:52)
--- NOTE | 2024-10-11 13:41 | Electrocardiogram Report ---
Test Reason : Blood Pressure : */* mmHG Vent. Rate : 77 BPM Atrial Rate : 77 BPM P-R Int : 148 ms QRS Dur : 92 ms QT Int : 398 ms P-R-T Axes : 57 -28 60 degrees QTcB Int : 450 ms Normal sinus rhythm Diffuse Minor Nonspecific T wave abnormality Abnormal ECG When compared with ECG of 10-Oct-2024 19:22, Premature supraventricular complexes are no longer Present T wave inversion no longer evident in Anterior leads Confirmed by Oscar Fletcher ([id number]) on 10/11/2024 1:40:42 PM Referred By: Jermaine Duran Confirmed By: Oscar Fletcher
[2024-10-11] MEDS: SODIUM CHLORIDE 0.9% 1,000 ML IV SCH ×2 (13:50→13:51)
--- NOTE | 2024-10-11 13:59 | XCELERA ---
[id number]
--- NOTE | 2024-10-11 14:03 | Cardiology Consultation ---
Date of Consultation October 11, 2024 Assessment & Plan (1) Atrial fibrillation with RVR: (2) Syncope: (3) Metastases to the liver: Plan Given previous occurrences and lack of trauma with no evidence of heart block or bradycardia on telemetry suspect syncope was vasovagal, perhaps in the context of volume depletion, agree with rehydration. Permissive hypertension is appropriate, she should remain off lisinopril. Although low BP may become an issue, would recommend low dose of beta-aniyah to reduce likelihood of recurrent paroxysmal atrial fibrillation. Could utilize metoprolol tartrate 25 mg every 12 hours. Anticoagulation status difficult, given extensive metastases she would be at increased risk for bleeding and her atrial fibrillation has not as yet been sustained. No immediate need for anticoagulation, defer decision on chronic anticoagulation until later. Will follow along from a cardiology standpoint. History of Present Illness Reason for Consultation: new a-fib RVR, self limited, syncope Requesting Physician: Hilda Swan MD Attending Physician: Hilda Swan MD History of Present Illness 78-year-old woman with history of neuroendocrine carcinoma (metastatic to bone), diabetes mellitus with nephropathy, hypertension, chronic kidney disease stage III, no prior cardiac history, who was admitted earlier this morning after syncopal episode. She notes that she has had several prior syncopal episodes, the last of which was May 2024 while on the toilet, ER evaluation showed sinus rhythm with PACs normal troponin. It was at this point that radiographic evidence of her metastatic disease was first noted. She declined admission. Yesterday, while standing up from the dinner table, she abruptly became lightheaded and lost consciousness. No trauma, incontinence, or confusion. No prodrome or subsequent symptoms. ER evaluation showed atrial fibrillation with rapid ventricular response, she spontaneously reverted to sinus rhythm, she has generally remained in this with a couple of episodes of brief recurrent atrial fibrillation lasting a few seconds. She notes fatigue but denies any chest pain, dyspnea exertion, orthopnea, PND, l eg edema, or recent change in weight. She had no somatic complaints at the time of my evaluation this morning. Allergies Allergy/AdvReac Type Severity Reaction Status Date / Time codeine AdvReac Mild NAUSEA Verified 08/03/24 10:36 Home Medications Medication Instructions Recorded Confirmed Type aspirin 325 mg tablet 325 mg PO DAILY 05/17/19 10/11/24 History blood sugar diagnostic (OneTouch #100 ea 05/18/23 10/11/24 Rx Verio test strips) blood-glucose meter,continuous #1 ea 01/22/24 10/11/24 Rx (FreeStyle Rhonda 3 [place]) netarsudil 0.02 % eye drops 1 drp OPR HS 02/29/24 10/11/24 History ([place]) acetaminophen 500 mg tablet 500 mg PO Q6H PRN Pain 05/29/24 10/11/24 History cholecalciferol (vitamin D3) 50 50 mcg PO DAILY 05/29/24 10/11/24 History mcg (2,000 unit) tablet (Vitamin D3) dextrose 40 % oral gel (Glucose 1 ea PO UD PRN Hypoglycemia 05/29/24 10/11/24 History Gel) dorzolamide 22.3 mg-timolol 6.8 1 drp OPB BID 05/29/24 10/11/24 History mg/mL eye drops loperamide 2 mg capsule 2 mg PO Q6H PRN Loose Stool #30 07/12/24 09/14/24 Rx caps ferrous sulfate 325 mg (65 mg 325 mg PO DAILY 08/03/24 10/11/24 History iron) tablet omeprazole 20 mg capsule,delayed 20 mg PO DAILY 08/03/24 09/14/24 History release insulin aspart U-100 100 unit/mL 1 - 5 unit subcut TIDWMEAL 08/11/24 10/11/24 History subcutaneous cartridge (Novolog PenFill U-100 Insulin aspart) insulin glargine 100 unit/mL 8 - 11 unit subcut QPM 08/11/24 10/11/24 History subcutaneous solution (Lantus U-100 Insulin) blood-glucose sensor (FreeStyle #1 ea 08/26/24 10/11/24 Rx Rhonda 3 Plus Sensor device) lisinopril 20 mg tablet 20 mg PO DAILY #30 tabs 09/12/24 10/11/24 Rx pen needle, diabetic 32 gauge x #100 ea 09/16/24 10/11/24 Rx 1/4" (BD Ultra-Fine Micro Pen Needle) finerenone 10 mg tablet 10 mg PO DAILY #30 tabs 09/28/24 10/11/24 Rx artificial tears solution eye drops 1 drp ophthalmic (eye) PRN Dry 10/11/24 History Eye(S) dextrose 40 % oral gel (Glutose-15) 1 ea PO PRN Hypoglycemia 10/11/24 History loperamide 2 mg capsule 2 mg PO Q2H PRN Diarrhea 10/11/24 10/11/24 History Patient History Medical History History of stroke Acid reflux Hypercalcemia Glaucoma Ruptured intervertebral disc Surgical History S/P tonsillectomy S/P lumbar laminectomy S/P cholecystectomy S/P cataract surgery Status post appendectomy Family History Brother Carcinoma of retina Type 2 diabetes mellitus Gastric cancer Dialysis patient Mother Macular degeneration Stroke Congestive heart failure Sister Bladder cancer Father No problems noted. Sister Thyroid cancer Son No problems noted. Daughter No problems noted. Denies family history of Prostate cancer Clotting disorder Crohn's disease Myocardial infarction Breast cancer Colorectal cancer Ulcerative colitis Social History Smoking Status: Unknown if ever smoked Second Hand Exposure: No; Do You Dip or Chew Tobacco: No; Hx Alcohol Use: No Hx Substance Use: No Preferred Language: Samoan Communication Ability: Effective Visual Impairment: Severely Limited Hearing Ability: Normal Conveyor Maintenance Mechanic Required: No Beliefs That Will Affect Care: None marital status: / Current Living Situation: Personal Care Facility Current Living Situation Comment: [facility] current occupational status: retired How many Children do You have: 2 How many Children do You have Comment: 1 boy 1 girl Other Information That Helps Us Care for You: No Feels Safe at Home: Yes Safety Concerns: Feels Safe At This Time Childhood Exposure to Second-Hand Smoke: No Diet: regular caffeine: Yes (1 cup/day) during the past year weight has: remained stable Dental Care, Regularly: Yes Physical Activity Frequency: Does not Exercise Seatbelt Use: always Assistive Devices: Walker Physical Exam Physical Exam: Elderly white female in no acute distress. Afebrile. BP 154/68 mmHg. Pulse 68 bpm regular. Respirations 18 unlabored. Skin: no ecchymoses or generalized lesions. HEENT: unremarkable. Neck: JVP at the clavicle at 90 degrees, no carotid bruits. Lungs: clear. Cardiac: regular rhythm, normal S1-2, no murmur. Abdomen: benign. Extremities: no edema, pulses intact. Neurologic: normal affect and conversation, nonfocal. Results & Data Laboratory Results Troponin 5.3. Normal CBC. Sodium 132, potassium 4.6, BUN 32, creatinine 1.42. Diagnostic Findings ECG admission showed atrial fibrillation with rapid ventricular response, left intrafascicular block, old septal infarct. Subsequent ECG showed sinus rhythm with diffuse none specific T wave flattening. Chest x-ray unremarkable. Abdominal pelvic CT with multiple liver metastases with intra-abdominal metastatic implants as well and compressive phenomenon. Echocardiogram showed EF 65 to 70% with moderate LVH and normal wall motion, grade 1 diastolic dysfunction, small noncircumferential pericardial effusion (anterior) which does not appear hemodynamically significant. No prior study for comparison. PG Care Time/CCT Total # of Minutes Spent Total Time Spent with Patient: Total time spent is greater than 50% in coordination of care (as documented) at patient's floor/unit and/or counseling patient: Coding Level of Care Code 49642 IN/OBS CONSULT LVL 4,60M Diagnoses Atrial fibrillation with RVR I48.91 Syncope R55 Metastases to the liver C78.7
[2024-10-11 19:26] VITALS: RESP 18
[2024-10-11] MEDS: LANTUS PER UNIT CHARGE SQ SCH (20:42)
[2024-10-11] MEDS: METOPROLOL TARTRATE 25 MG TAB PO SCH (20:43)
[2024-10-12 01:05] LABS: Appearance Urine Clear (Clear); Bacteria Urine Automated None Seen (None Seen); Bilirubin Urine Negative (Negative); Blood Urine Negative (Negative); Cast Urine Automated 0-2 /lpf (0-2); Color Urine Yellow; Epithelial Cell Urine Auto 0-2 /hpf (0-2); Glucose Urine UA Negative (Negative); Ketones Urine Negative (Negative); Leukocyte Esterase Urine Negative (Negative); Nitrite Urine Negative (Negative); Protein Urine Trace (Negative); RBC Urine Automated 0-2 /hpf (0-2); Specific Gravity Urine 1.014 (1.000-1.030); Urobilinogen Urine Negative (Negative); WBC Urine Automated 0-5 /hpf (0-5); pH Urine 5.5 (4.5-7.5)
[2024-10-12 02:49] VITALS: O2SAT 94
[2024-10-12 07:24] LABS: Albumin Level 3.1 gm/dl (3.4-5.0); BUN Creatinine Ratio 21.3 (10-20); Basophils # (auto) 0.06 K/uL (0.00-0.20); Basophils % (auto) 1.1 %; Calcium 9.4 mg/dl (8.6-10.3); Creatinine Clr Calc Pharmacy 37.9 ml/min; Eosinophils # (auto) 0.18 K/uL (0.00-0.50); Eosinophils % (auto) 3.4 %; Hematocrit (blood only) 35.5 % (37.0-47.0); Hemoglobin 11.3 g/dl (12.0-16.0); Immature Granulocytes # (auto) 0.02 K/uL (0.01-0.20); Immature Granulocytes % (auto) 0.4 %; Lymphocytes # (auto) 2.15 K/uL (1.20-3.40); Lymphocytes % (auto) 40.6 %; Magnesium 2.3 mg/dl (1.7-2.4); Mean Corpuscular Hemoglobin 27.6 pg (25.0-34.0); Mean Corpuscular Hgb Conc 31.8 g/dL (32.0-36.0); Mean Corpuscular Volume 86.8 fL (80.0-100.0); Mean Platelet Volume 11.2 fL (9.4-12.4); Monocytes # (auto) 0.56 K/uL (0.11-0.59); Monocytes % (auto) 10.6 %; Neutrophils # (auto) 2.33 K/uL (1.40-6.50); Neutrophils % (auto) 43.9 %; Phosphorus 3.2 mg/dl (2.5-4.9); Platelet Count 202 K/uL (130-400); Potassium 4.4 mmol/L (3.5-5.1); RDW Coefficient of Variation 16.4 % (11.5-14.5); RDW Standard Deviation 51.9 fL (36.4-46.3); Red Blood Count 4.09 M/uL (4.20-5.40)
[2024-10-12 07:31] LABS: Estimated Average Glucose 151 mg/dl; Hemoglobin A1C 6.9 % (4.5-5.6)
[2024-10-12 07:57] VITALS: BP 129/72; PULSE 68; TEMP 98.8
--- NOTE | 2024-10-12 08:17 | Electrocardiogram Report ---
Test Reason : Blood Pressure : */* mmHG Vent. Rate : 70 BPM Atrial Rate : 70 BPM P-R Int : 104 ms QRS Dur : 94 ms QT Int : 372 ms P-R-T Axes : -16 -31 9 degrees QTcB Int : 401 ms Sinus rhythm with short VT Left axis deviation Diffuse Nonspecific T wave abnormality Old Septal infarct Abnormal ECG When compared with ECG of 11-Oct-2024 08:31, No significant change Confirmed by Oscar Fletcher ([id number]) on 10/12/2024 8:17:19 AM Referred By: Jermaine Duran Confirmed By: Oscar Fletcher
--- NOTE | 2024-10-12 09:18 | Discharge Summary ---
Date of Service October 12, 2024 Admission HPI Per Admitting Provider The patient presents to the emergency department after being referred from nursing facility due to episodes of vomiting and a fall, which likely was syncopal, early this afternoon. 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 She presents to the emergency department after an episode of vomiting with a fall, possibly syncopal. Upon arrival to the emergency department, patient has no further symptoms. She notes that she does have chronic diarrhea secondary to her neuroendocrine tumor, that is unchanged Admission Exam Per Admitting Provider The patient is awake, alert and oriented 3, well developed and well nourished, normocephalic and atraumatic, lying in bed and in no acute distress. HEENT--PERRL, EOMI, mucous membranes and oropharynx dry. Neck--supple. No JVD. No bruits. Thyroid normal, trachea midline, no adenopathy. Heart--normal S1 and S2. No murmurs, rubs or gallops. Lungs--clear bilaterally, no respiratory distress, no accessory muscle use. Abdomen--normal bowel sounds and soft. Nontender. Nondistended Extremities--No edema. Dermatologic--normal skin turgor, normal color, no abnormal lymph nodes, no rash. Neurologic--cranial nerves II through XII grossly intact. Rheumatologic--normal range of motion. Psychiatric--normal affect. Principal Diagnosis vasovagal response Discharge Exam Gen: chronically ill appearing patient in NAD HEENT: AT NC MMM Resp: CTAB, appropriate air movement, no increased work of breathing CV: RRR no m/r/g clinically well perfused Abd: non-distended MSK: no obvious deformities Skin: no rashes or bruising Neuro: alert and oriented Psych: appropriate mood and affect Discharge Data Allergies Allergy/AdvReac Type Severity Reaction Status Date / Time codeine AdvReac Mild NAUSEA Verified 08/03/24 10:36 Consultations 10/11/24 00:49 ED Decision to Admit Stat 10/11/24 04:43 Consult Cardiology Routine Consult Hematology Routine Ordered Studies Abdomen/Pelvis CT 10/10/24 19:30 FINDINGS: ABDOMEN: Liver: Multiple metastatic lesions in the liver. Largest lesion in the liver left hepatic lobe measuring 2.8 x 2.5 cm, unchanged. Gallbladder and bile ducts: Cholecystectomy. Biliary dilatation has progressed from the prior. Pancreas: Unremarkable. Spleen: Unremarkable. Adrenals: Unremarkable. Kidneys and ureters: Unremarkable. No obstructing stones. No hydronephrosis. Stomach and bowel: Colonic diverticulosis. PELVIS: Appendix: No findings to suggest acute appendicitis. Bladder: Unremarkable. Reproductive: Unremarkable as visualized. ABDOMEN and PELVIS: Intraperitoneal space: Unremarkable. No free air. No significant fluid collection. Bones/joints: No acute fracture. Soft tissues: Unremarkable. Vasculature: Stenotic/occluded SMV with developing mesenteric varices. Lymph nodes: Numerous metastatic implants within the mesentery and retroperitoneal adenopathy. Largest metastatic implant measures 4.3 x 4.4 cm at the level of the right renal vein unchanged. Other findings: Partially calcified mesenteric mass measuring 4.8 x 2.8 cm is unchanged. IMPRESSION: 1. Multiple metastatic lesions in the liver. 2. Partially calcified mesenteric mass measuring 4.8 x 2.8 cm is unchanged. 3. Numerous metastatic implants within the mesentery and retroperitoneal adenopathy. Largest metastatic implant measures 4.3 x 4.4 cm at the level of the right renal vein unchanged. 4. Cholecystectomy. Biliary dilatation has progressed from the prior. 5. Stenotic/occluded SMV with developing mesenteric varices. Chest X-Ray 10/10/24 19:30 FINDINGS: Lungs: No consolidation. No overt edema. Pleural space: No pleural effusion. No pneumothorax. Heart: Unremarkable. No cardiomegaly. IMPRESSION: No acute cardiopulmonary abnormality. Head CT 10/10/24 19:30 FINDINGS: Brain: No intracranial hemorrhage, mass-effect, or cerebral edema. Global parenchymal atrophy. Periventricular and subcortical low attenuation w hich is nonspecific but favored to represent chronic microvascular ischemic changes. Ventricles: Unremarkable. Bones/joints: Unremarkable. No fracture. Soft tissues: Unremarkable. Sinuses: No acute sinusitis. Mastoid air cells: Unremarkable as visualized. IMPRESSION: 1. No acute intracranial abnormality. Hospital Course (1) Nausea and vomiting: (2) Acute kidney injury superimposed on CKD: (3) Chronic diarrhea: (4) Metastases to the liver: (5) Atrial fibrillation with RVR: (6) 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: (7) Syncope: Avel Mast is a 78F w/ PMH of diabetes, HLD, HTN, CKD3, hyperparathyroidism, neuroendocrine tumor w/ mets, AFib RVR and chronic diarrhea who presented 10/10 for evaluation of emesis with subsequent syncope and was admitted for further workup and management of her symptoms. Emesis/Syncope Chronic Diarrhea Likely vasovagal event in setting of dehydration and emesis. Patient doing much better. CTAP negative. ECHO without causative findings. Sodium has normalized. Chronic, Paroxysmal, AFib RVR Transient episode upon arrival, resolved w/o intervention. Likely in the setting of acute dehydration. Patient now in NSR. Cards consulted - d/c lisinopril, added metoprolol 25 mg BID. No anticoagulation as patient is a high bleed risk with her metastatic cancer. Neuroendocrine Carcinoma w/ Mets (Liver/Lung/Bone) Unchanged on admission imaging from 07/22/24. Planned hormonal treatment due 10/13 - rescheduled to 10/17. Patient to follow up with onc ANTONIO on CKD Pre-renal in the setting of acute dehydration. Patient back at baseline ~1.3 after fluid resuscitation. Can resume home meds on d/c. Chronic Conditions: DM2: ACHS BSG w/ SSI Inpatient, home basal dosing ordered. Resume home regimen on d/c Total Time Total Time Spent Total Time Spent (In Minutes): See attending attestation Discharge Plan Discharge Items Patient Disposition: Personal Jail Reason For Visit: NEW A-FIB W/ RVR, SYNCOPE Discharge Diagnosis: vasovagal syncope, a fib with RVR, dehydration Activity: Per Instructions section Non-emergency contact: Primary Care Provider and Oncologist Call non-emergency contact if: your temperature is above 101.5 Follow-up/Referrals: Jermaine Duran MD [Primary Care Provider] - Roberto Lowery MD [Physician] - Diet: Regular Addtl Attending Provider Instructions: You were seen in the hospital after a fall. We did a thorough work up and likely you fell because you were dehydrated and throwing up. We gave you IV fluids and your symptoms improved. Your kidney function was also slightly worse, but that resolved with IV fluids. You also were found to have something called atrial fibrillation. This is a condition where your heart beat becomes irregular and fast. This has since resolved. We did start you on a medicine called metoprolol to take every 12 hours. This will help keep your heart rate under control. We did not start any blood thinners as your history of cancer increases your risk of bleeding. Make sure to follow up with your oncologist for your next octreotide injection and next steps in your care. We would also recommend seeing your PCP in the next 7-10 days to discuss your hospital stay. Thank you for allowing us to participate in your care. Pending Studies at Discharge: No Stand-Alone Forms: My [employer], Smoking Cessation Skilled Items Patient informed of condition?: Yes DNR: Yes Discharge Level of Care: Other Communicable Disease: No Discharge Prognosis: Stable Lines: None Urinary Catheter: No Medications and DC Order Prescriptions: New metoprolol tartrate 25 mg Tablet 25 mg PO BID 30 Days Qty: 60 0RF Continued insulin glargine [Lantus U-100 Insulin] 100 unit/mL solution 8 - 11 unit subcut QPM Rx Instructions: Alternating dose of 8 unit / 11 unit subcutaneously one time a day. (DME) OneTouch Verio test strips Strip See Rx Instructions .Route Qty: 100 6RF Rx Instructions: use to test sugar TID DX:E11.49 loperamide 2 mg capsule 2 mg PO Q6H MDD 16mg/24hr PRN (Reason: Loose Stool) Qty: 30 4RF (DME) FreeStyle Rhonda 3 Plus Sensor Device See Rx Instructions .Route Qty: 1 11RF Rx Instructions: change Q15D (DME) pen needle, diabetic [BD Ultra-Fine Micro Pen Needle] 32 gauge x 1/4" needle See Rx Instructions .Route Qty: 100 3RF Rx Instructions: use with novalog and lantus E11.9 finerenone 10 mg tablet 10 mg PO DAILY Qty: 30 1RF dorzolamide-timolol 22.3-6.8 mg/mL drops 1 drp OPB BID Qty: 10 0RF aspirin 325 mg tablet 325 mg PO DAILY (DME) FreeStyle Rhonda 3 [place] Misc See Rx Instructions .Route Qty: 1 0RF Rx Instructions: for use with rhonda 3 sensor insulin aspart U-100 [Novolog PenFill U-100 Insulin] 100 unit/mL cartridge 1 - 5 unit subcut TIDWMEAL Rx Instructions: Alternating dose of 1 unit / 5 unit subcutaneously before meals for BASE DOSE. Rhopressa 0.02 % drops 1 drp OPR HS Rx Instructions: 1 drop in right eye at bedtime ferrous sulfate 325 mg (65 mg iron) tablet 325 mg PO DAILY omeprazole 20 mg capsule,delayed release(DR/EC) 20 mg PO DAILY dextrose [Glucose Gel] 40 % Gel 1 ea PO UD PRN (Reason: Hypoglycemia) Rx Instructions: If BG is <50 give 1 tube and retest in 15 mins. Repeat if BG is <80. If pt is unable to take orally, administer 1mg of glucagon subcutaneously acetaminophen 500 mg Tablet 500 mg PO Q6H PRN (Reason: Pain) cholecalciferol (vitamin D3) [Vitamin D3] 50 mcg (2,000 unit) Tablet 50 mcg PO DAILY artificial tears solution Drops 1 drp OPHTHALMIC (EYE) PRN (Reason: Dry Eye(S)) dextrose [Glutose-15] 40 % Gel 1 ea PO PRN (Reason: Hypoglycemia) Rx Instructions: If BSG <50 give 1 tube and retest in 15 minutes. Repeat treatment if retest <80. loperamide 2 mg Capsule 2 mg PO Q2H MDD 16 PRN (Reason: Diarrhea) Rx Instructions: administer after each loose stool until symptoms controlled; do not exceed 8 mg per 24 hrs Discontinued lisinopril 20 mg tablet 20 mg PO DAILY Qty: 30 4RF Discharge Orders: Discharge Order (Routine); Ordered 10/12/24 Ordered By: Su Gillespie Admission Data Admit Date/Time: 10/11/24 01:20 Attending Provider: Hilda Swan Admit Provider: Kenrick Garcia Primary Care Provider: Jermaine Duran Other Providers: Kenrick Garcia; Jermaine Crockett; Roberto Lowery Other Interventions: Discharge Summary Assessment (RN) Last Done: 10/12/24 11:19 Supervising Physician Co-Signing Physician Notes Attending Physician Supervision Note: I independently interviewed and examined the patient and verified the bullock history and physical, reviewed labs and image studies and agree with findings and care plan noted above. Diarrhea improved. No further emesis. Feeling much better. Syncope -in setting of chronic diarrhea and acute emesis. Also developed transient RVR. positive orthostatics recorded by nursing. Presentation likely from hypovolemia. -Received IV hydration -Diet advanced - tolerated. Chronic diarrhea -secondary to neuroendocrine tumor. -Continue loperamide -Due for hormonal treatment for the tumor in 2 days which helps with her symptoms A-fib RVR on presentation -history of PAF. RVR trigger hypovolemia. -Evaluated by cardiology. Continue rehydration -Added metoprolol 25 mg twice daily. -Not on anticoagulation -secondary to liver mets HTN -on lisinopril. Held on admission. -Cardiology agrees with continuing to hold to Allow permissive hypertension -d/c ed lisinopril on discharge. Resident Activity Tracking Resident Involvement: Resident Care Provided Care Provided: Adult [facility]
--- NOTE | 2024-10-12 10:43 | Cardiology Progress Note ---
Date of Service October 12, 2024 Assessment & Plan (1) Atrial fibrillation with RVR: (2) Syncope: (3) Metastases to the liver: Plan No further atrial tachydysrhythmias. Hemodynamics favorable. Would continue low-dose metoprolol, given prompt response and tendency to bradycardia could consolidate dose by changing metoprolol tartrate 25 mg twice daily to metoprolol succinate 25 mg daily. BP is normotensive, given recent syncope which may have had an orthostatic component she should remain off lisinopril. Weighing risks and benefits, given increased risk of bleeding with metastatic cancer and reasonable likelihood that she would not have recurrent atrial fibrillation, could continue to forego anticoagulation and obtain 30-day MCOT monitor upon discharge to further verify the absence of any recurrent/sustained atrial tachydysrhythmias. Admission and Anticipated Discharge Date Admission Date: October 11, 2024 Subjective No complaints. She denies chest pain, dyspnea at rest or with mild exertion (walking to commode), subjective palpitations, or lightheadedness. Telemetry showed sinus bradycardia/rhythm with heart rate 50-70 bpm range. No further atrial tachydysrhythmias Physical Exam Physical Exam: No distress. Normotensive. Pulse 68 bpm and regular. Respirations 18 and unlabored. Skin: no ecchymoses or generalized lesions. HEENT: unremarkable. Neck: JVP at the clavicle at 90 degrees, no carotid bruits. Lungs: clear. Cardiac: regular rhythm, normal S1-2, no murmur. Abdomen: benign. Extremities: no edema, pulses intact. Neurologic: normal affect and conversation, nonfocal. Results & Data Laboratory Results Normal electrolytes, BUN 27, creatinine 1.27. PG Care Time/CCT Total # of Minutes Spent Total Time Spent with Patient: Total time spent is greater than 50% in coordination of care (as documented) at patient's floor/unit and/or counseling patient: Coding Level of Care Code 61454 SUB INP/OBS CARE 2/35MIN Diagnoses Atrial fibrillation with RVR I48.91 Syncope R55 Metastases to the liver C78.7
--- NOTE | 2024-10-19 06:17 | Electrocardiogram Report ---
Test Reason : Blood Pressure : */* mmHG Vent. Rate : 72 BPM Atrial Rate : 72 BPM P-R Int : 140 ms QRS Dur : 86 ms QT Int : 370 ms P-R-T Axes : 50 -31 88 degrees QTcB Int : 405 ms Sinus rhythm with Premature supraventricular complexes Left axis deviation Septal infarct (cited on or before 10-Oct-2024) T wave abnormality, consider anterolateral ischemia Abnormal ECG When compared with ECG of 10-Oct-2024 19:04, Sinus rhythm has replaced Atrial fibrillation Vent. rate has decreased by 90 bpm Nonspecific T wave abnormality now evident in Inferior leads T wave inversion now evident in Anterolateral leads Confirmed by Hair Cabrera ([id number]) on 10/19/2024 6:17:29 AM Referred By: Jermaine Duran Confirmed By: Hair Cabrera
== END 2024-10-12 11:30 | disposition home or self-care (01) ==
LOC: 1E 18:28 → ED 18:28 → SUATTDRO 10-11 01:20 → 1E 10-11 04:50 → 2E 10-11 18:13